=== PATIENT | male | born 1965 | race African-American/Black ===

== ENCOUNTER 2021-08-20 15:21 | Inpatient (IN) | payer OTHER ==
[2021-08-20 16:04] VITALS: BMI 30.5
[2021-08-20] MEDS ORDERED: MAGNESIUM CITRATE 300 ML BOTTLE PO PRN (16:53)
[2021-08-20] MEDS ORDERED: ACETAMINOPHEN 325 MG TABLET (FP) PO PRN (16:53)
[2021-08-20] MEDS ORDERED: MAG HYDROX/AL HYDROX/SIMETH 30 ML UNIT-DOSE CUP PO PRN (16:53)
[2021-08-20] MEDS ORDERED: P-EPHED 60MG/TRIPROLIDI 2.5MG TABLET PO PRN (16:53)
[2021-08-20] MEDS ORDERED: MAGNESIUM HYDROX 2400MG/30ML ORAL SUSPENSION 30 ML CUP PO PRN (16:53)
[2021-08-20] MEDS ORDERED: IBUPROFEN 400 MG TABLET (FP) PO PRN (16:53)
[2021-08-20] MEDS ORDERED: LOPERAMIDE HCL 2 MG CAPSULE PO PRN (16:53)
[2021-08-20] MEDS ORDERED: guaiFENesin 200 MG/10 ML 10 ML UNIT-DOSE CUPS PO PRN (16:53)
[2021-08-20] MEDS ORDERED: NICOTINE 10 MG CARTRIDGE (INHALER) IH PRN (16:53)
[2021-08-20] MEDS: hydrOXYzine PAMOATE 25 MG CAPSULE (FP) PO SCH ×2 (19:09→21:06)
[2021-08-20] MEDS: THIAMINE HCL 100 MG TABLET (FP) PO SCH (21:06)
[2021-08-20] MEDS: MELATONIN 5 MG TABLETS PO SCH (21:06)
[2021-08-21] MEDS: hydrOXYzine PAMOATE 25 MG CAPSULE (FP) PO SCH ×5 (06:04→21:02)
[2021-08-21] MEDS: PRENATAL VITAMINS W/ FOLIC ACID TABLET (FP) PO SCH (09:37)
[2021-08-21] MEDS: NICOTINE 7 MG/24 HOURS TOPICAL PATCH TD SCH (09:37)
[2021-08-21 11:03] LABS: HEMATOCRIT 37.9 % (35.4-49); HEMOGLOBIN 12.4 GM/dL (11.7-16.9); MCH 29.1 pg (25.7-33.7); MCHC 32.8 g/dl (32.0-35.9); MEAN CELL VOLUME 88.8 fl (80-96); MEAN PLT VOLUME 10.2 fl (7.5-11.1); PLATELET COUNT 197 10^3/uL (134-434); RBC 4.27 M/mm3 (4.00-5.60); RDW 14.1 % (11.9-15.9); WHITE BLOOD COUNT 6.2 K/mm3 (4.0-10.0)
[2021-08-21 11:05] LABS: PH,URINE 5.5 (5.0-8.0); URINE APPEARANCE CLEAR; URINE BILIRUBIN NEGATIVE (NEGATIVE); URINE COLOR YELLOW; URINE GLUCOSE (UA) NEGATIVE (NEGATIVE); URINE KETONE NEGATIVE (NEGATIVE); URINE LEUK ESTERASE NEGATIVE (NEGATIVE); URINE NITRITE NEGATIVE (NEGATIVE); URINE PROTEIN NEGATIVE (NEGATIVE); URINE UROBILINOGEN 0.2 mg/dL (0.2-1.0)
[2021-08-21 11:18] LABS: CALCIUM 8.5 mg/dL (8.5-10.1)
[2021-08-21 11:19] LABS: ALBUMIN 3.4 g/dl (3.4-5.0); BLOOD UREA NITROGEN 12.6 mg/dL (7-18)
[2021-08-21 11:23] LABS: BILIRUBIN,TOTAL 0.2 mg/dL (0.2-1); CREATININE 1.3 mg/dL (0.55-1.3); TOT PROT 6.4 g/dl (6.4-8.2)
[2021-08-21 11:35] LABS: SYPHILIS W/ RPR CONF NON-REACTIVE (NONREACTIVE)
[2021-08-21] MEDS ORDERED: buPROPion HCL 100 MG TABLET PO SCH (14:00)
[2021-08-21] MEDS ORDERED: FLUoxetine HCL 10 MG TABLET PO SCH (14:00)
[2021-08-21] MEDS: FLUoxetine HCL 20 MG CAPSULE PO SCH (14:29)
[2021-08-21] MEDS: LISINOPRIL 20 MG TABLET PO SCH (14:29)
[2021-08-21] MEDS: amLODIPine BESYLATE 5 MG TABLET (FP) PO SCH (14:29)
[2021-08-21] MEDS: TAMSULOSIN HCL 0.4 MG CAP PO SCH (14:29)
[2021-08-21] MEDS: ASPIRIN 81 MG CHEWABLE TABLETS PO SCH (14:29)
[2021-08-21] MEDS: ARIPiprazole 15 MG TABLET PO SCH (15:36)
[2021-08-21] MEDS: buPROPion HCL 100 MG TABLET PO SCH (17:20)
[2021-08-21] MEDS: MIRTAZAPINE 15 MG TABLET (FP) PO SCH (21:01)
[2021-08-21] MEDS: ATORVASTATIN CA 10 MG TABLET (FP) PO SCH (21:01)
[2021-08-21] MEDS: THIAMINE HCL 100 MG TABLET (FP) PO SCH (21:02)
[2021-08-21] MEDS: MELATONIN 5 MG TABLETS PO SCH (21:02)
[2021-08-22] MEDS: hydrOXYzine PAMOATE 25 MG CAPSULE (FP) PO SCH ×3 (06:32→14:34)
[2021-08-22] MEDS: TAMSULOSIN HCL 0.4 MG CAP PO SCH (08:54)
[2021-08-22] MEDS: PRENATAL VITAMINS W/ FOLIC ACID TABLET (FP) PO SCH (09:52)
[2021-08-22] MEDS: ASPIRIN 81 MG CHEWABLE TABLETS PO SCH (09:53)
[2021-08-22] MEDS: ARIPiprazole 15 MG TABLET PO SCH (09:53)
[2021-08-22] MEDS: NICOTINE 7 MG/24 HOURS TOPICAL PATCH TD SCH (09:53)
[2021-08-22] MEDS: buPROPion HCL 100 MG TABLET PO SCH ×2 (09:53→17:18)
[2021-08-22] MEDS: FLUoxetine HCL 20 MG CAPSULE PO SCH (09:53)
[2021-08-22] MEDS: amLODIPine BESYLATE 5 MG TABLET (FP) PO SCH (09:53)
[2021-08-22] MEDS: LISINOPRIL 20 MG TABLET PO SCH (09:53)
[2021-08-22] MEDS: THIAMINE HCL 100 MG TABLET (FP) PO SCH (21:07)
[2021-08-22] MEDS: MIRTAZAPINE 15 MG TABLET (FP) PO SCH (21:07)
[2021-08-22] MEDS: ATORVASTATIN CA 10 MG TABLET (FP) PO SCH (21:07)
[2021-08-22] MEDS: MELATONIN 5 MG TABLETS PO SCH (21:07)
[2021-08-23] MEDS: hydrOXYzine PAMOATE 25 MG CAPSULE (FP) PO PRN (06:10)
[2021-08-23] MEDS: PRENATAL VITAMINS W/ FOLIC ACID TABLET (FP) PO SCH (09:28)
[2021-08-23] MEDS: FLUoxetine HCL 20 MG CAPSULE PO SCH (09:29)
[2021-08-23] MEDS: ASPIRIN 81 MG CHEWABLE TABLETS PO SCH (09:29)
[2021-08-23] MEDS: ARIPiprazole 15 MG TABLET PO SCH (09:30)
[2021-08-23] MEDS: buPROPion HCL 100 MG TABLET PO SCH ×2 (09:30→16:34)
[2021-08-23] MEDS: NICOTINE 7 MG/24 HOURS TOPICAL PATCH TD SCH (09:30)
[2021-08-23] MEDS: TAMSULOSIN HCL 0.4 MG CAP PO SCH (09:30)
[2021-08-23] MEDS: amLODIPine BESYLATE 5 MG TABLET (FP) PO SCH (11:00)
[2021-08-23] MEDS: LISINOPRIL 20 MG TABLET PO SCH (11:00)
[2021-08-23] MEDS: ATORVASTATIN CA 10 MG TABLET (FP) PO SCH (21:00)
[2021-08-23] MEDS: THIAMINE HCL 100 MG TABLET (FP) PO SCH (21:00)
[2021-08-23] MEDS: MIRTAZAPINE 15 MG TABLET (FP) PO SCH (21:00)
[2021-08-23] MEDS: MELATONIN 5 MG TABLETS PO SCH (21:00)
[2021-08-24] MEDS: hydrOXYzine PAMOATE 25 MG CAPSULE (FP) PO PRN ×2 (06:16→16:46)
[2021-08-24] MEDS: TAMSULOSIN HCL 0.4 MG CAP PO SCH (09:41)
[2021-08-24] MEDS: amLODIPine BESYLATE 5 MG TABLET (FP) PO SCH (09:41)
[2021-08-24] MEDS: buPROPion HCL 100 MG TABLET PO SCH ×2 (09:42→16:45)
[2021-08-24] MEDS: ASPIRIN 81 MG CHEWABLE TABLETS PO SCH (09:42)
[2021-08-24] MEDS: NICOTINE 7 MG/24 HOURS TOPICAL PATCH TD SCH (09:42)
[2021-08-24] MEDS: LISINOPRIL 20 MG TABLET PO SCH (09:42)
[2021-08-24] MEDS: PRENATAL VITAMINS W/ FOLIC ACID TABLET (FP) PO SCH (09:42)
[2021-08-24] MEDS: ARIPiprazole 15 MG TABLET PO SCH (09:42)
[2021-08-24] MEDS: FLUoxetine HCL 20 MG CAPSULE PO SCH (09:42)
[2021-08-24] MEDS: MIRTAZAPINE 15 MG TABLET (FP) PO SCH (21:10)
[2021-08-24] MEDS: ATORVASTATIN CA 10 MG TABLET (FP) PO SCH (21:10)
[2021-08-24] MEDS: THIAMINE HCL 100 MG TABLET (FP) PO SCH (21:10)
[2021-08-24] MEDS: MELATONIN 5 MG TABLETS PO SCH (21:10)
[2021-08-25] MEDS: ASPIRIN 81 MG CHEWABLE TABLETS PO SCH (09:49)
[2021-08-25] MEDS: NICOTINE 7 MG/24 HOURS TOPICAL PATCH TD SCH (09:49)
[2021-08-25] MEDS: TAMSULOSIN HCL 0.4 MG CAP PO SCH (09:49)
[2021-08-25] MEDS: FLUoxetine HCL 20 MG CAPSULE PO SCH (09:49)
[2021-08-25] MEDS: ARIPiprazole 15 MG TABLET PO SCH (09:49)
[2021-08-25] MEDS: LISINOPRIL 20 MG TABLET PO SCH (09:49)
[2021-08-25] MEDS: PRENATAL VITAMINS W/ FOLIC ACID TABLET (FP) PO SCH (09:49)
[2021-08-25] MEDS: amLODIPine BESYLATE 5 MG TABLET (FP) PO SCH (09:49)
[2021-08-25] MEDS: buPROPion HCL 100 MG TABLET PO SCH ×2 (09:51→17:20)
[2021-08-25] MEDS: MELATONIN 5 MG TABLETS PO SCH (21:10)
[2021-08-25] MEDS: THIAMINE HCL 100 MG TABLET (FP) PO SCH (21:10)
[2021-08-25] MEDS: ATORVASTATIN CA 10 MG TABLET (FP) PO SCH (21:10)
[2021-08-25] MEDS: MIRTAZAPINE 15 MG TABLET (FP) PO SCH (21:10)
[2021-08-26] MEDS: buPROPion HCL 100 MG TABLET PO SCH ×2 (09:43→16:51)
[2021-08-26] MEDS: LISINOPRIL 20 MG TABLET PO SCH (09:44)
[2021-08-26] MEDS: ARIPiprazole 15 MG TABLET PO SCH (09:44)
[2021-08-26] MEDS: amLODIPine BESYLATE 5 MG TABLET (FP) PO SCH (09:44)
[2021-08-26] MEDS: NICOTINE 7 MG/24 HOURS TOPICAL PATCH TD SCH (09:44)
[2021-08-26] MEDS: ASPIRIN 81 MG CHEWABLE TABLETS PO SCH (09:44)
[2021-08-26] MEDS: TAMSULOSIN HCL 0.4 MG CAP PO SCH (09:44)
[2021-08-26] MEDS: FLUoxetine HCL 20 MG CAPSULE PO SCH (09:44)
[2021-08-26] MEDS: hydrOXYzine PAMOATE 25 MG CAPSULE (FP) PO PRN (09:45)
[2021-08-26] MEDS: PRENATAL VITAMINS W/ FOLIC ACID TABLET (FP) PO SCH (09:46)
[2021-08-26] MEDS: THIAMINE HCL 100 MG TABLET (FP) PO SCH (21:04)
[2021-08-26] MEDS: ATORVASTATIN CA 10 MG TABLET (FP) PO SCH (21:04)
[2021-08-26] MEDS: MELATONIN 5 MG TABLETS PO SCH (21:04)
[2021-08-26] MEDS: MIRTAZAPINE 15 MG TABLET (FP) PO SCH (21:04)
[2021-08-27] MEDS: hydrOXYzine PAMOATE 25 MG CAPSULE (FP) PO PRN ×3 (03:09→21:02)
[2021-08-27] MEDS: ARIPiprazole 15 MG TABLET PO SCH (09:36)
[2021-08-27] MEDS: FLUoxetine HCL 20 MG CAPSULE PO SCH (09:36)
[2021-08-27] MEDS: ASPIRIN 81 MG CHEWABLE TABLETS PO SCH (09:36)
[2021-08-27] MEDS: LISINOPRIL 20 MG TABLET PO SCH (09:36)
[2021-08-27] MEDS: TAMSULOSIN HCL 0.4 MG CAP PO SCH (09:36)
[2021-08-27] MEDS: amLODIPine BESYLATE 5 MG TABLET (FP) PO SCH (09:36)
[2021-08-27] MEDS: PRENATAL VITAMINS W/ FOLIC ACID TABLET (FP) PO SCH (09:36)
[2021-08-27] MEDS: buPROPion HCL 100 MG TABLET PO SCH ×2 (09:37→17:50)
[2021-08-27] MEDS: NICOTINE 7 MG/24 HOURS TOPICAL PATCH TD SCH (09:37)
[2021-08-27] MEDS: ATORVASTATIN CA 10 MG TABLET (FP) PO SCH (21:02)
[2021-08-27] MEDS: THIAMINE HCL 100 MG TABLET (FP) PO SCH (21:02)
[2021-08-27] MEDS: MIRTAZAPINE 15 MG TABLET (FP) PO SCH (21:02)
[2021-08-27] MEDS: MELATONIN 5 MG TABLETS PO SCH (21:03)
[2021-08-28] MEDS: ASPIRIN 81 MG CHEWABLE TABLETS PO SCH (09:36)
[2021-08-28] MEDS: FLUoxetine HCL 20 MG CAPSULE PO SCH (09:36)
[2021-08-28] MEDS: PRENATAL VITAMINS W/ FOLIC ACID TABLET (FP) PO SCH (09:36)
[2021-08-28] MEDS: buPROPion HCL 100 MG TABLET PO SCH ×2 (09:36→16:38)
[2021-08-28] MEDS: amLODIPine BESYLATE 5 MG TABLET (FP) PO SCH (09:37)
[2021-08-28] MEDS: ARIPiprazole 15 MG TABLET PO SCH (09:37)
[2021-08-28] MEDS: NICOTINE 7 MG/24 HOURS TOPICAL PATCH TD SCH (09:37)
[2021-08-28] MEDS: TAMSULOSIN HCL 0.4 MG CAP PO SCH (09:38)
[2021-08-28] MEDS: LISINOPRIL 20 MG TABLET PO SCH (09:40)
[2021-08-28] MEDS: THIAMINE HCL 100 MG TABLET (FP) PO SCH (21:03)
[2021-08-28] MEDS: MELATONIN 5 MG TABLETS PO SCH (21:03)
[2021-08-28] MEDS: ATORVASTATIN CA 10 MG TABLET (FP) PO SCH (21:03)
[2021-08-28] MEDS: MIRTAZAPINE 15 MG TABLET (FP) PO SCH (21:03)
[2021-08-29] MEDS: FLUoxetine HCL 20 MG CAPSULE PO SCH (09:50)
[2021-08-29] MEDS: PRENATAL VITAMINS W/ FOLIC ACID TABLET (FP) PO SCH (09:50)
[2021-08-29] MEDS: TAMSULOSIN HCL 0.4 MG CAP PO SCH (09:51)
[2021-08-29] MEDS: ASPIRIN 81 MG CHEWABLE TABLETS PO SCH (09:51)
[2021-08-29] MEDS: ARIPiprazole 15 MG TABLET PO SCH (09:51)
[2021-08-29] MEDS: amLODIPine BESYLATE 5 MG TABLET (FP) PO SCH (09:51)
[2021-08-29] MEDS: buPROPion HCL 100 MG TABLET PO SCH ×2 (09:51→16:37)
[2021-08-29] MEDS: LISINOPRIL 20 MG TABLET PO SCH (09:52)
[2021-08-29] MEDS: NICOTINE 7 MG/24 HOURS TOPICAL PATCH TD SCH (09:52)
[2021-08-29] MEDS: THIAMINE HCL 100 MG TABLET (FP) PO SCH (21:05)
[2021-08-29] MEDS: ATORVASTATIN CA 10 MG TABLET (FP) PO SCH (21:05)
[2021-08-29] MEDS: MIRTAZAPINE 15 MG TABLET (FP) PO SCH (21:05)
[2021-08-29] MEDS: MELATONIN 5 MG TABLETS PO SCH (21:05)
[2021-08-30] MEDS: amLODIPine BESYLATE 5 MG TABLET (FP) PO SCH (09:34)
[2021-08-30] MEDS: ASPIRIN 81 MG CHEWABLE TABLETS PO SCH (09:34)
[2021-08-30] MEDS: ARIPiprazole 15 MG TABLET PO SCH (09:34)
[2021-08-30] MEDS: FLUoxetine HCL 20 MG CAPSULE PO SCH (09:34)
[2021-08-30] MEDS: TAMSULOSIN HCL 0.4 MG CAP PO SCH (09:34)
[2021-08-30] MEDS: buPROPion HCL 100 MG TABLET PO SCH ×2 (09:35→16:57)
[2021-08-30] MEDS: LISINOPRIL 20 MG TABLET PO SCH (09:36)
[2021-08-30] MEDS: NICOTINE 7 MG/24 HOURS TOPICAL PATCH TD SCH (09:36)
[2021-08-30] MEDS: PRENATAL VITAMINS W/ FOLIC ACID TABLET (FP) PO SCH (09:36)
[2021-08-30] MEDS: THIAMINE HCL 100 MG TABLET (FP) PO SCH (21:09)
[2021-08-30] MEDS: ATORVASTATIN CA 10 MG TABLET (FP) PO SCH (21:09)
[2021-08-30] MEDS: MIRTAZAPINE 15 MG TABLET (FP) PO SCH (21:09)
[2021-08-30] MEDS: MELATONIN 5 MG TABLETS PO SCH (21:09)
[2021-08-30 21:51] VITALS: RESP 18
[2021-08-31] MEDS: amLODIPine BESYLATE 5 MG TABLET (FP) PO SCH (09:49)
[2021-08-31] MEDS: TAMSULOSIN HCL 0.4 MG CAP PO SCH (09:49)
[2021-08-31] MEDS: buPROPion HCL 100 MG TABLET PO SCH ×2 (09:50→17:00)
[2021-08-31] MEDS: NICOTINE 7 MG/24 HOURS TOPICAL PATCH TD SCH (09:50)
[2021-08-31] MEDS: ASPIRIN 81 MG CHEWABLE TABLETS PO SCH (09:50)
[2021-08-31] MEDS: FLUoxetine HCL 20 MG CAPSULE PO SCH (09:50)
[2021-08-31] MEDS: ARIPiprazole 15 MG TABLET PO SCH (09:50)
[2021-08-31] MEDS: PRENATAL VITAMINS W/ FOLIC ACID TABLET (FP) PO SCH (09:50)
[2021-08-31] MEDS: LISINOPRIL 20 MG TABLET PO SCH (09:50)
[2021-08-31] MEDS: ATORVASTATIN CA 10 MG TABLET (FP) PO SCH (21:02)
[2021-08-31] MEDS: THIAMINE HCL 100 MG TABLET (FP) PO SCH (21:02)
[2021-08-31] MEDS: MIRTAZAPINE 15 MG TABLET (FP) PO SCH (21:02)
[2021-08-31] MEDS: MELATONIN 5 MG TABLETS PO SCH (21:02)
[2021-09-01] MEDS: TAMSULOSIN HCL 0.4 MG CAP PO SCH (07:48)
[2021-09-01] MEDS: PRENATAL VITAMINS W/ FOLIC ACID TABLET (FP) PO SCH (09:37)
[2021-09-01] MEDS: ASPIRIN 81 MG CHEWABLE TABLETS PO SCH (09:38)
[2021-09-01] MEDS: buPROPion HCL 100 MG TABLET PO SCH ×2 (09:38→16:52)
[2021-09-01] MEDS: LISINOPRIL 20 MG TABLET PO SCH (09:38)
[2021-09-01] MEDS: amLODIPine BESYLATE 5 MG TABLET (FP) PO SCH (09:38)
[2021-09-01] MEDS: FLUoxetine HCL 20 MG CAPSULE PO SCH (09:38)
[2021-09-01] MEDS: ARIPiprazole 15 MG TABLET PO SCH (09:39)
[2021-09-01] MEDS: NICOTINE 7 MG/24 HOURS TOPICAL PATCH TD SCH (09:40)
[2021-09-01] MEDS: MELATONIN 5 MG TABLETS PO SCH (21:15)
[2021-09-01] MEDS: THIAMINE HCL 100 MG TABLET (FP) PO SCH (21:16)
[2021-09-01] MEDS: MIRTAZAPINE 15 MG TABLET (FP) PO SCH (21:16)
[2021-09-01] MEDS: ATORVASTATIN CA 10 MG TABLET (FP) PO SCH (21:16)
[2021-09-02] MEDS: TAMSULOSIN HCL 0.4 MG CAP PO SCH (08:05)
[2021-09-02] MEDS: ASPIRIN 81 MG CHEWABLE TABLETS PO SCH (09:35)
[2021-09-02] MEDS: hydrOXYzine PAMOATE 25 MG CAPSULE (FP) PO PRN (09:35)
[2021-09-02] MEDS: PRENATAL VITAMINS W/ FOLIC ACID TABLET (FP) PO SCH (09:35)
[2021-09-02] MEDS: FLUoxetine HCL 20 MG CAPSULE PO SCH (09:35)
[2021-09-02] MEDS: ARIPiprazole 15 MG TABLET PO SCH (09:35)
[2021-09-02] MEDS: amLODIPine BESYLATE 5 MG TABLET (FP) PO SCH (09:35)
[2021-09-02] MEDS: buPROPion HCL 100 MG TABLET PO SCH ×2 (09:36→17:20)
[2021-09-02] MEDS: NICOTINE 7 MG/24 HOURS TOPICAL PATCH TD SCH (09:36)
[2021-09-02] MEDS: LISINOPRIL 20 MG TABLET PO SCH (10:53)
[2021-09-02] MEDS: MELATONIN 5 MG TABLETS PO SCH (21:09)
[2021-09-02] MEDS: ATORVASTATIN CA 10 MG TABLET (FP) PO SCH (21:09)
[2021-09-02] MEDS: THIAMINE HCL 100 MG TABLET (FP) PO SCH (21:09)
[2021-09-02] MEDS: MIRTAZAPINE 15 MG TABLET (FP) PO SCH (21:09)
[2021-09-03 07:03] VITALS: TEMP 97.8
[2021-09-03] MEDS: TAMSULOSIN HCL 0.4 MG CAP PO SCH (09:34)
[2021-09-03] MEDS: PRENATAL VITAMINS W/ FOLIC ACID TABLET (FP) PO SCH (09:34)
[2021-09-03] MEDS: FLUoxetine HCL 20 MG CAPSULE PO SCH (09:34)
[2021-09-03] MEDS: amLODIPine BESYLATE 5 MG TABLET (FP) PO SCH (09:34)
[2021-09-03] MEDS: LISINOPRIL 20 MG TABLET PO SCH (09:34)
[2021-09-03] MEDS: ASPIRIN 81 MG CHEWABLE TABLETS PO SCH (09:34)
[2021-09-03] MEDS: ARIPiprazole 15 MG TABLET PO SCH (09:35)
[2021-09-03] MEDS: buPROPion HCL 100 MG TABLET PO SCH (09:35)
[2021-09-03] MEDS: NICOTINE 7 MG/24 HOURS TOPICAL PATCH TD SCH (09:36)
[2021-09-03 09:52] VITALS: BP 121/68; PULSE 77
== END 2021-09-03 09:45 | disposition home or self-care (01) | DRG 772 ==
LOC: YASAS 15:21 → Y5N 17:06
PROVIDERS: ADMIT Allergy & Immunology; ATTEND Psychiatry & Neurology Pain Medicine
PROC: HZ42ZZZ Group Counseling for Substance Abuse Treatment, Cognitive-Behavioral (ICD-10-PCS; principal; 2021-08-20)
DX: F10.20 Alcohol dependence, uncomplicated (principal); F14.20 Cocaine dependence, uncomplicated; F12.20 Cannabis dependence, uncomplicated; F17.210 Nicotine dependence, cigarettes, uncomplicated; F19.282 Other psychoactive substance dependence with psychoactive substance-induced sleep disorder; F19.24 Other psychoactive substance dependence with psychoactive substance-induced mood disorder; F43.10 Post-traumatic stress disorder, unspecified; I10 Essential (primary) hypertension; E78.5 Hyperlipidemia, unspecified; B40.0 Acute pulmonary blastomycosis; E66.9 Obesity, unspecified; Z68.30 Body mass index [BMI] 30.0-30.9, adult; Z99.89 Dependence on other enabling machines and devices
CPT/HCPCS: 36415; 80053; 81003; 82962; 85027; 86780; 86803

== ENCOUNTER 2021-10-17 16:55 | Inpatient (IN) | payer OTHER ==
[2021-10-17] MEDS ORDERED: MAG HYDROX/AL HYDROX/SIMETH 30 ML UNIT-DOSE CUP PO PRN (21:55)
[2021-10-17] MEDS ORDERED: guaiFENesin 200 MG/10 ML 10 ML UNIT-DOSE CUPS PO PRN (21:55)
[2021-10-17] MEDS ORDERED: NICOTINE POLACRILEX 2 MG GUM BC PRN (21:55)
[2021-10-17] MEDS ORDERED: MAGNESIUM HYDROX 2400MG/30ML ORAL SUSPENSION 30 ML CUP PO PRN (21:55)
[2021-10-17] MEDS ORDERED: P-EPHED 60MG/TRIPROLIDI 2.5MG TABLET PO PRN (21:55)
[2021-10-17] MEDS ORDERED: ACETAMINOPHEN 325 MG TABLET (FP) PO PRN (21:55)
[2021-10-17] MEDS ORDERED: LOPERAMIDE HCL 2 MG CAPSULE PO PRN (21:55)
[2021-10-17] MEDS ORDERED: MAGNESIUM CITRATE 300 ML BOTTLE PO PRN (21:55)
[2021-10-17 22:35] VITALS: BMI 30.4
[2021-10-18] MEDS: hydrOXYzine PAMOATE 25 MG CAPSULE (FP) PO SCH ×6 (01:32→21:18)
[2021-10-18] MEDS: MELATONIN 5 MG TABLETS PO SCH ×2 (01:32→21:17)
[2021-10-18] MEDS: THIAMINE HCL 100 MG TABLET (FP) PO SCH ×2 (01:33→21:17)
[2021-10-18] MEDS: PRENATAL VITAMINS W/ FOLIC ACID TABLET (FP) PO SCH (09:22)
[2021-10-18] MEDS ORDERED: buPROPion HCL 100 MG TABLET PO ONE (09:45)
[2021-10-18] MEDS: amLODIPine BESYLATE 5 MG TABLET (FP) PO SCH (10:13)
[2021-10-18] MEDS: FLUoxetine HCL 20 MG CAPSULE PO SCH (10:13)
[2021-10-18] MEDS: ARIPiprazole 15 MG TABLET PO SCH (10:13)
[2021-10-18] MEDS: TAMSULOSIN HCL 0.4 MG CAP PO SCH (10:13)
[2021-10-18] MEDS: ASPIRIN 81 MG CHEWABLE TABLETS PO SCH (10:13)
[2021-10-18 10:16] LABS: HEMOGLOBIN 13.1 GM/dL (11.7-16.9); MCHC 32.8 g/dl (32.0-35.9); MEAN CELL VOLUME 88.5 fl (80-96); MEAN PLT VOLUME 10.1 fl (7.5-11.1); PLATELET COUNT 236 10^3/uL (134-434); RBC 4.52 M/mm3 (4.00-5.60); RDW 14.2 % (11.9-15.9); WHITE BLOOD COUNT 6.6 K/mm3 (4.0-10.0)
[2021-10-18 10:19] LABS: ALBUMIN 3.4 g/dl (3.4-5.0); BLOOD UREA NITROGEN 18.4 mg/dL (7-18); CALCIUM 9.2 mg/dL (8.5-10.1)
[2021-10-18 10:21] LABS: CREATININE 1.4 mg/dL (0.55-1.3)
[2021-10-18 10:23] LABS: BILIRUBIN,TOTAL 0.2 mg/dL (0.2-1); TOT PROT 6.7 g/dl (6.4-8.2)
[2021-10-18] MEDS: IBUPROFEN 400 MG TABLET (FP) PO PRN (10:26)
[2021-10-18 10:39] LABS: SYPHILIS W/ RPR CONF NON-REACTIVE (NONREACTIVE)
[2021-10-18 12:54] LABS: PH,URINE 5.5 (5.0-8.0); URINE APPEARANCE CLEAR; URINE BILIRUBIN NEGATIVE (NEGATIVE); URINE COLOR YELLOW; URINE GLUCOSE (UA) NEGATIVE (NEGATIVE); URINE KETONE NEGATIVE (NEGATIVE); URINE LEUK ESTERASE NEGATIVE (NEGATIVE); URINE NITRITE NEGATIVE (NEGATIVE); URINE PROTEIN NEGATIVE (NEGATIVE); URINE UROBILINOGEN 0.2 mg/dL (0.2-1.0)
[2021-10-18] MEDS ORDERED: buPROPion HCL 100 MG TABLET PO SCH (16:00)
[2021-10-18] MEDS: MIRTAZAPINE 15 MG TABLET (FP) PO SCH (21:17)
[2021-10-18] MEDS: ATORVASTATIN CA 10 MG TABLET (FP) PO SCH (21:17)
[2021-10-19] MEDS: hydrOXYzine PAMOATE 25 MG CAPSULE (FP) PO SCH ×5 (06:58→21:02)
[2021-10-19] MEDS: TAMSULOSIN HCL 0.4 MG CAP PO SCH (09:44)
[2021-10-19] MEDS: FLUoxetine HCL 20 MG CAPSULE PO SCH (09:44)
[2021-10-19] MEDS: ASPIRIN 81 MG CHEWABLE TABLETS PO SCH (09:44)
[2021-10-19] MEDS: ARIPiprazole 15 MG TABLET PO SCH (09:45)
[2021-10-19] MEDS: PRENATAL VITAMINS W/ FOLIC ACID TABLET (FP) PO SCH (09:45)
[2021-10-19] MEDS: amLODIPine BESYLATE 5 MG TABLET (FP) PO SCH (09:46)
[2021-10-19] MEDS: buPROPion HCL 100 MG TABLET PO SCH ×2 (11:15→17:03)
[2021-10-19] MEDS: ATORVASTATIN CA 10 MG TABLET (FP) PO SCH (21:01)
[2021-10-19] MEDS: THIAMINE HCL 100 MG TABLET (FP) PO SCH (21:01)
[2021-10-19] MEDS: MIRTAZAPINE 15 MG TABLET (FP) PO SCH (21:02)
[2021-10-19] MEDS: MELATONIN 5 MG TABLETS PO SCH (21:02)
[2021-10-20] MEDS: hydrOXYzine PAMOATE 25 MG CAPSULE (FP) PO SCH ×5 (06:38→21:32)
[2021-10-20] MEDS: TAMSULOSIN HCL 0.4 MG CAP PO SCH (09:50)
[2021-10-20] MEDS: ASPIRIN 81 MG CHEWABLE TABLETS PO SCH (09:50)
[2021-10-20] MEDS: PRENATAL VITAMINS W/ FOLIC ACID TABLET (FP) PO SCH (09:50)
[2021-10-20] MEDS: buPROPion HCL 100 MG TABLET PO SCH ×2 (09:51→21:31)
[2021-10-20] MEDS: amLODIPine BESYLATE 5 MG TABLET (FP) PO SCH (09:51)
[2021-10-20] MEDS: ARIPiprazole 15 MG TABLET PO SCH (09:51)
[2021-10-20] MEDS: FLUoxetine HCL 20 MG CAPSULE PO SCH (09:51)
[2021-10-20] MEDS: IBUPROFEN 400 MG TABLET (FP) PO PRN (17:02)
[2021-10-20] MEDS: ATORVASTATIN CA 10 MG TABLET (FP) PO SCH (21:32)
[2021-10-20] MEDS: MELATONIN 5 MG TABLETS PO SCH (21:32)
[2021-10-20] MEDS: MIRTAZAPINE 15 MG TABLET (FP) PO SCH (21:32)
[2021-10-20] MEDS: THIAMINE HCL 100 MG TABLET (FP) PO SCH (21:32)
[2021-10-21] MEDS: hydrOXYzine PAMOATE 25 MG CAPSULE (FP) PO SCH ×5 (07:52→21:09)
[2021-10-21] MEDS: buPROPion HCL 100 MG TABLET PO SCH ×2 (09:42→17:46)
[2021-10-21] MEDS: FLUoxetine HCL 20 MG CAPSULE PO SCH (09:42)
[2021-10-21] MEDS: PRENATAL VITAMINS W/ FOLIC ACID TABLET (FP) PO SCH (09:42)
[2021-10-21] MEDS: amLODIPine BESYLATE 5 MG TABLET (FP) PO SCH (09:42)
[2021-10-21] MEDS: ASPIRIN 81 MG CHEWABLE TABLETS PO SCH (09:42)
[2021-10-21] MEDS: ARIPiprazole 15 MG TABLET PO SCH (09:42)
[2021-10-21] MEDS: TAMSULOSIN HCL 0.4 MG CAP PO SCH (10:19)
[2021-10-21] MEDS: THIAMINE HCL 100 MG TABLET (FP) PO SCH (21:09)
[2021-10-21] MEDS: ATORVASTATIN CA 10 MG TABLET (FP) PO SCH (21:09)
[2021-10-21] MEDS: MELATONIN 5 MG TABLETS PO SCH (21:09)
[2021-10-21] MEDS: MIRTAZAPINE 15 MG TABLET (FP) PO SCH (21:09)
[2021-10-22] MEDS: hydrOXYzine PAMOATE 25 MG CAPSULE (FP) PO SCH ×5 (06:40→21:04)
[2021-10-22] MEDS: IBUPROFEN 400 MG TABLET (FP) PO PRN (07:37)
[2021-10-22] MEDS: ASPIRIN 81 MG CHEWABLE TABLETS PO SCH (09:50)
[2021-10-22] MEDS: TAMSULOSIN HCL 0.4 MG CAP PO SCH (09:50)
[2021-10-22] MEDS: ARIPiprazole 15 MG TABLET PO SCH (09:51)
[2021-10-22] MEDS: buPROPion HCL 100 MG TABLET PO SCH ×2 (09:51→16:51)
[2021-10-22] MEDS: PRENATAL VITAMINS W/ FOLIC ACID TABLET (FP) PO SCH (09:51)
[2021-10-22] MEDS: FLUoxetine HCL 20 MG CAPSULE PO SCH (09:51)
[2021-10-22] MEDS: amLODIPine BESYLATE 5 MG TABLET (FP) PO SCH (09:51)
[2021-10-22] MEDS: THIAMINE HCL 100 MG TABLET (FP) PO SCH (21:04)
[2021-10-22] MEDS: MIRTAZAPINE 15 MG TABLET (FP) PO SCH (21:04)
[2021-10-22] MEDS: ATORVASTATIN CA 10 MG TABLET (FP) PO SCH (21:04)
[2021-10-22] MEDS: MELATONIN 5 MG TABLETS PO SCH (21:04)
[2021-10-23] MEDS: hydrOXYzine PAMOATE 25 MG CAPSULE (FP) PO SCH ×5 (06:15→21:10)
[2021-10-23] MEDS: TAMSULOSIN HCL 0.4 MG CAP PO SCH (10:06)
[2021-10-23] MEDS: ASPIRIN 81 MG CHEWABLE TABLETS PO SCH (10:06)
[2021-10-23] MEDS: ARIPiprazole 15 MG TABLET PO SCH (10:07)
[2021-10-23] MEDS: buPROPion HCL 100 MG TABLET PO SCH ×2 (10:07→16:59)
[2021-10-23] MEDS: FLUoxetine HCL 20 MG CAPSULE PO SCH (10:07)
[2021-10-23] MEDS: PRENATAL VITAMINS W/ FOLIC ACID TABLET (FP) PO SCH (10:08)
[2021-10-23] MEDS: amLODIPine BESYLATE 5 MG TABLET (FP) PO SCH (10:08)
[2021-10-23] MEDS: THIAMINE HCL 100 MG TABLET (FP) PO SCH (21:10)
[2021-10-23] MEDS: ATORVASTATIN CA 10 MG TABLET (FP) PO SCH (21:10)
[2021-10-23] MEDS: MELATONIN 5 MG TABLETS PO SCH (21:10)
[2021-10-23] MEDS: MIRTAZAPINE 15 MG TABLET (FP) PO SCH (21:11)
[2021-10-24] MEDS: hydrOXYzine PAMOATE 25 MG CAPSULE (FP) PO SCH ×5 (06:14→21:12)
[2021-10-24] MEDS: amLODIPine BESYLATE 5 MG TABLET (FP) PO SCH (09:52)
[2021-10-24] MEDS: ASPIRIN 81 MG CHEWABLE TABLETS PO SCH (09:52)
[2021-10-24] MEDS: TAMSULOSIN HCL 0.4 MG CAP PO SCH (09:53)
[2021-10-24] MEDS: FLUoxetine HCL 20 MG CAPSULE PO SCH (09:53)
[2021-10-24] MEDS: PRENATAL VITAMINS W/ FOLIC ACID TABLET (FP) PO SCH (09:53)
[2021-10-24] MEDS: ARIPiprazole 15 MG TABLET PO SCH (09:54)
[2021-10-24] MEDS: buPROPion HCL 100 MG TABLET PO SCH ×2 (09:54→17:47)
[2021-10-24] MEDS: MELATONIN 5 MG TABLETS PO SCH (21:11)
[2021-10-24] MEDS: ATORVASTATIN CA 10 MG TABLET (FP) PO SCH (21:12)
[2021-10-24] MEDS: THIAMINE HCL 100 MG TABLET (FP) PO SCH (21:12)
[2021-10-24] MEDS: MIRTAZAPINE 15 MG TABLET (FP) PO SCH (21:12)
[2021-10-25] MEDS: hydrOXYzine PAMOATE 25 MG CAPSULE (FP) PO SCH ×5 (06:11→21:18)
[2021-10-25] MEDS: FLUoxetine HCL 20 MG CAPSULE PO SCH (09:58)
[2021-10-25] MEDS: ASPIRIN 81 MG CHEWABLE TABLETS PO SCH (09:58)
[2021-10-25] MEDS: TAMSULOSIN HCL 0.4 MG CAP PO SCH (09:58)
[2021-10-25] MEDS: amLODIPine BESYLATE 5 MG TABLET (FP) PO SCH (09:58)
[2021-10-25] MEDS: ARIPiprazole 15 MG TABLET PO SCH (09:58)
[2021-10-25] MEDS: PRENATAL VITAMINS W/ FOLIC ACID TABLET (FP) PO SCH (09:58)
[2021-10-25] MEDS: buPROPion HCL 100 MG TABLET PO SCH ×2 (10:37→18:59)
[2021-10-25] MEDS: MELATONIN 5 MG TABLETS PO SCH (21:19)
[2021-10-25] MEDS: THIAMINE HCL 100 MG TABLET (FP) PO SCH (21:19)
[2021-10-25] MEDS: MIRTAZAPINE 15 MG TABLET (FP) PO SCH (21:20)
[2021-10-25] MEDS: ATORVASTATIN CA 10 MG TABLET (FP) PO SCH (21:20)
[2021-10-26] MEDS: hydrOXYzine PAMOATE 25 MG CAPSULE (FP) PO SCH ×5 (06:27→21:01)
[2021-10-26] MEDS: PRENATAL VITAMINS W/ FOLIC ACID TABLET (FP) PO SCH (09:43)
[2021-10-26] MEDS: FLUoxetine HCL 20 MG CAPSULE PO SCH (09:43)
[2021-10-26] MEDS: amLODIPine BESYLATE 5 MG TABLET (FP) PO SCH (09:43)
[2021-10-26] MEDS: buPROPion HCL 100 MG TABLET PO SCH ×2 (09:43→16:45)
[2021-10-26] MEDS: TAMSULOSIN HCL 0.4 MG CAP PO SCH (09:43)
[2021-10-26] MEDS: ASPIRIN 81 MG CHEWABLE TABLETS PO SCH (09:44)
[2021-10-26] MEDS: ARIPiprazole 15 MG TABLET PO SCH (09:44)
[2021-10-26] MEDS ORDERED: PNEUMOC 20-VAL CONJ-DIP CRM/PF 0.5 ML SYRINGE IM ONE (12:00)
[2021-10-26] MEDS: THIAMINE HCL 100 MG TABLET (FP) PO SCH (21:00)
[2021-10-26] MEDS: MELATONIN 5 MG TABLETS PO SCH (21:00)
[2021-10-26] MEDS: MIRTAZAPINE 15 MG TABLET (FP) PO SCH (21:01)
[2021-10-26] MEDS: ATORVASTATIN CA 10 MG TABLET (FP) PO SCH (21:01)
[2021-10-27] MEDS: hydrOXYzine PAMOATE 25 MG CAPSULE (FP) PO SCH ×5 (06:15→21:09)
[2021-10-27] MEDS: TAMSULOSIN HCL 0.4 MG CAP PO SCH (09:35)
[2021-10-27] MEDS: amLODIPine BESYLATE 5 MG TABLET (FP) PO SCH (09:35)
[2021-10-27] MEDS: ASPIRIN 81 MG CHEWABLE TABLETS PO SCH (09:35)
[2021-10-27] MEDS: FLUoxetine HCL 20 MG CAPSULE PO SCH (09:35)
[2021-10-27] MEDS: PRENATAL VITAMINS W/ FOLIC ACID TABLET (FP) PO SCH (09:36)
[2021-10-27] MEDS: ARIPiprazole 15 MG TABLET PO SCH (09:36)
[2021-10-27] MEDS: buPROPion HCL 100 MG TABLET PO SCH ×2 (09:37→16:45)
[2021-10-27] MEDS: MIRTAZAPINE 15 MG TABLET (FP) PO SCH (21:09)
[2021-10-27] MEDS: THIAMINE HCL 100 MG TABLET (FP) PO SCH (21:09)
[2021-10-27] MEDS: ATORVASTATIN CA 10 MG TABLET (FP) PO SCH (21:09)
[2021-10-27] MEDS: MELATONIN 5 MG TABLETS PO SCH (21:09)
[2021-10-28] MEDS: hydrOXYzine PAMOATE 25 MG CAPSULE (FP) PO SCH ×5 (06:11→21:13)
[2021-10-28] MEDS: ASPIRIN 81 MG CHEWABLE TABLETS PO SCH (09:53)
[2021-10-28] MEDS: TAMSULOSIN HCL 0.4 MG CAP PO SCH (09:53)
[2021-10-28] MEDS: PRENATAL VITAMINS W/ FOLIC ACID TABLET (FP) PO SCH (09:54)
[2021-10-28] MEDS: ARIPiprazole 15 MG TABLET PO SCH (09:54)
[2021-10-28] MEDS: FLUoxetine HCL 20 MG CAPSULE PO SCH (09:54)
[2021-10-28] MEDS: amLODIPine BESYLATE 5 MG TABLET (FP) PO SCH (09:54)
[2021-10-28] MEDS: CARBAMIDE PEROXIDE 6.5% OTIC 15 ML BOTTLE AU SCH ×2 (10:46→21:14)
[2021-10-28] MEDS: buPROPion HCL 100 MG TABLET PO SCH ×2 (10:46→17:47)
[2021-10-28] MEDS: MELATONIN 5 MG TABLETS PO SCH (21:13)
[2021-10-28] MEDS: MIRTAZAPINE 15 MG TABLET (FP) PO SCH (21:13)
[2021-10-28] MEDS: THIAMINE HCL 100 MG TABLET (FP) PO SCH (21:13)
[2021-10-28] MEDS: ATORVASTATIN CA 10 MG TABLET (FP) PO SCH (21:13)
[2021-10-29] MEDS: IBUPROFEN 400 MG TABLET (FP) PO PRN (01:01)
[2021-10-29] MEDS: hydrOXYzine PAMOATE 25 MG CAPSULE (FP) PO SCH ×5 (06:11→21:15)
[2021-10-29] MEDS: ARIPiprazole 15 MG TABLET PO SCH (09:49)
[2021-10-29] MEDS: TAMSULOSIN HCL 0.4 MG CAP PO SCH (09:50)
[2021-10-29] MEDS: amLODIPine BESYLATE 5 MG TABLET (FP) PO SCH (09:50)
[2021-10-29] MEDS: CARBAMIDE PEROXIDE 6.5% OTIC 15 ML BOTTLE AU SCH ×2 (09:50→21:16)
[2021-10-29] MEDS: PRENATAL VITAMINS W/ FOLIC ACID TABLET (FP) PO SCH (09:50)
[2021-10-29] MEDS: FLUoxetine HCL 20 MG CAPSULE PO SCH (09:50)
[2021-10-29] MEDS: ASPIRIN 81 MG CHEWABLE TABLETS PO SCH (09:50)
[2021-10-29] MEDS: buPROPion HCL 100 MG TABLET PO SCH ×2 (10:54→16:25)
[2021-10-29] MEDS: ATORVASTATIN CA 10 MG TABLET (FP) PO SCH (21:14)
[2021-10-29] MEDS: THIAMINE HCL 100 MG TABLET (FP) PO SCH (21:14)
[2021-10-29] MEDS: MIRTAZAPINE 15 MG TABLET (FP) PO SCH (21:14)
[2021-10-29] MEDS: MELATONIN 5 MG TABLETS PO SCH (21:15)
[2021-10-30] MEDS: hydrOXYzine PAMOATE 25 MG CAPSULE (FP) PO SCH (06:10)
[2021-10-30 06:47] VITALS: RESP 16
[2021-10-30] MEDS: ARIPiprazole 15 MG TABLET PO SCH (09:57)
[2021-10-30] MEDS: amLODIPine BESYLATE 5 MG TABLET (FP) PO SCH (09:58)
[2021-10-30] MEDS: CARBAMIDE PEROXIDE 6.5% OTIC 15 ML BOTTLE AU SCH ×2 (09:58→21:10)
[2021-10-30] MEDS: TAMSULOSIN HCL 0.4 MG CAP PO SCH (09:58)
[2021-10-30] MEDS: ASPIRIN 81 MG CHEWABLE TABLETS PO SCH (09:58)
[2021-10-30] MEDS: PRENATAL VITAMINS W/ FOLIC ACID TABLET (FP) PO SCH (09:59)
[2021-10-30] MEDS: FLUoxetine HCL 20 MG CAPSULE PO SCH (09:59)
[2021-10-30] MEDS: buPROPion HCL 100 MG TABLET PO SCH ×2 (10:00→17:21)
[2021-10-30] MEDS: MELATONIN 5 MG TABLETS PO SCH (21:08)
[2021-10-30] MEDS: THIAMINE HCL 100 MG TABLET (FP) PO SCH (21:08)
[2021-10-30] MEDS: MIRTAZAPINE 15 MG TABLET (FP) PO SCH (21:08)
[2021-10-30] MEDS: ATORVASTATIN CA 10 MG TABLET (FP) PO SCH (21:08)
[2021-10-30] MEDS: hydrOXYzine PAMOATE 25 MG CAPSULE (FP) PO PRN (21:09)
[2021-10-31] MEDS: hydrOXYzine PAMOATE 25 MG CAPSULE (FP) PO PRN (06:24)
[2021-10-31 06:43] VITALS: TEMP 98
[2021-10-31] MEDS: TAMSULOSIN HCL 0.4 MG CAP PO SCH (09:09)
[2021-10-31] MEDS: ASPIRIN 81 MG CHEWABLE TABLETS PO SCH (09:09)
[2021-10-31] MEDS: PRENATAL VITAMINS W/ FOLIC ACID TABLET (FP) PO SCH (09:09)
[2021-10-31] MEDS: amLODIPine BESYLATE 5 MG TABLET (FP) PO SCH (09:09)
[2021-10-31] MEDS: CARBAMIDE PEROXIDE 6.5% OTIC 15 ML BOTTLE AU SCH (09:09)
[2021-10-31] MEDS: ARIPiprazole 15 MG TABLET PO SCH (09:09)
[2021-10-31 09:10] VITALS: BP 112/73; PULSE 78
[2021-10-31] MEDS: buPROPion HCL 100 MG TABLET PO SCH (09:10)
[2021-10-31] MEDS: FLUoxetine HCL 20 MG CAPSULE PO SCH (09:10)
== END 2021-10-31 09:21 | disposition home or self-care (01) | DRG 772 ==
LOC: YASAS 16:55 → Y3E 23:56
PROVIDERS: ADMIT Allergy & Immunology; ATTEND Surgery
PROC: HZ42ZZZ Group Counseling for Substance Abuse Treatment, Cognitive-Behavioral (ICD-10-PCS; principal; 2021-10-17)
DX: F14.20 Cocaine dependence, uncomplicated (principal); F17.210 Nicotine dependence, cigarettes, uncomplicated; F19.282 Other psychoactive substance dependence with psychoactive substance-induced sleep disorder; F19.24 Other psychoactive substance dependence with psychoactive substance-induced mood disorder; F43.10 Post-traumatic stress disorder, unspecified; F32.A Depression, unspecified; I10 Essential (primary) hypertension; E78.5 Hyperlipidemia, unspecified; H61.23 Impacted cerumen, bilateral; M17.12 Unilateral primary osteoarthritis, left knee; N40.0 Benign prostatic hyperplasia without lower urinary tract symptoms
CPT/HCPCS: 36415; 80053; 81003; 82962; 85027; 86780; 86803; 87811; 90677; C9803-CS; U0003; U0005

== ENCOUNTER 2022-08-09 17:37 | Inpatient (IN) | payer OTHER ==
[2022-08-09 18:01] VITALS: BMI 32.1
[2022-08-09] MEDS ORDERED: NALOXONE HCL 0.4 MG/ML VIAL IM PRN (19:41)
[2022-08-09] MEDS ORDERED: COLLOIDAL OATMEAL 1 BAR EACH TP PRN (19:41)
[2022-08-09] MEDS ORDERED: BENZOCAINE/MENTHOL (CHLORASEPTIC ) LOZENGE MM PRN (19:41)
[2022-08-09] MEDS ORDERED: hydrOXYzine PAMOATE 25 MG CAPSULE (FP) PO PRN (19:41)
[2022-08-09] MEDS ORDERED: MAG HYDROX/AL HYDROX/SIMETH 30 ML UNIT-DOSE CUP PO PRN (19:41)
[2022-08-09] MEDS ORDERED: POLYETHYLENE GLYCOL (HEALTHYLAX) 3350 17 GM PACKET PO PRN (19:41)
[2022-08-09] MEDS ORDERED: IBUPROFEN 400 MG TABLET (FP) PO PRN (19:41)
[2022-08-09] MEDS ORDERED: ACETAMINOPHEN 325 MG TABLET (FP) PO PRN (19:41)
[2022-08-09] MEDS ORDERED: MAGNESIUM HYDROX 2400MG/30ML ORAL SUSPENSION 30 ML CUP PO PRN (19:41)
[2022-08-09] MEDS ORDERED: LOPERAMIDE HCL 2 MG CAPSULE PO PRN (19:41)
[2022-08-09] MEDS ORDERED: NALOXONE HCL (KLOXXADO) 8 MG SPRAY NS PRN (19:41)
[2022-08-09] MEDS ORDERED: guaiFENesin 600 MG TABLET.ER (FP) PO PRN (19:41)
[2022-08-09] MEDS ORDERED: AMMONIUM LACTATE 12% LOTION 225 GM BOTTLE TP PRN (19:41)
[2022-08-09] MEDS ORDERED: BENZONATATE 200 MG CAPSULE PO PRN (19:41)
[2022-08-09] MEDS: THIAMINE HCL 100 MG TABLET (FP) PO SCH (21:23)
[2022-08-09] MEDS: ATORVASTATIN CA 10 MG TABLET (FP) PO SCH (21:23)
[2022-08-09] MEDS ORDERED: MELATONIN 5 MG TABLETS PO SCH (22:00)
[2022-08-10] MEDS: ASPIRIN 81 MG CHEWABLE TABLETS PO SCH (09:12)
[2022-08-10] MEDS: TAMSULOSIN HCL 0.4 MG CAP PO SCH (09:12)
[2022-08-10] MEDS: PRENATAL VITAMINS W/ FOLIC ACID TABLET (FP) PO SCH (09:12)
[2022-08-10] MEDS: amLODIPine BESYLATE 5 MG TABLET (FP) PO SCH (09:36)
[2022-08-10] MEDS: LISINOPRIL 20 MG TABLET PO SCH (09:36)
[2022-08-10 11:53] LABS: HEMATOCRIT 37.2 % (35.4-49); HEMOGLOBIN 11.7 GM/dL (11.7-16.9); MCHC 31.4 g/dl (32.0-35.9); MEAN PLT VOLUME 10.3 fl (7.5-11.1); PLATELET COUNT 249 10^3/uL (134-434); RBC 4.32 M/mm3 (4.00-5.60); WHITE BLOOD COUNT 6.2 K/mm3 (4.0-10.0)
[2022-08-10 12:12] LABS: URINE APPEARANCE CLEAR; URINE BILIRUBIN NEGATIVE (NEGATIVE); URINE COLOR YELLOW; URINE GLUCOSE (UA) NEGATIVE (NEGATIVE); URINE KETONE NEGATIVE (NEGATIVE); URINE LEUK ESTERASE NEGATIVE (NEGATIVE); URINE NITRITE NEGATIVE (NEGATIVE); URINE PROTEIN NEGATIVE (NEGATIVE); URINE UROBILINOGEN 0.2 mg/dL (0.2-1.0)
[2022-08-10 12:15] LABS: POTASSIUM 4.3 mmol/L (3.5-5.1)
[2022-08-10 12:28] LABS: CALCIUM 9.3 mg/dL (8.5-10.1)
[2022-08-10 12:29] LABS: ALBUMIN 3.1 g/dl (3.4-5.0); BLOOD UREA NITROGEN 11.2 mg/dL (7-18); CREATININE 1.3 mg/dL (0.55-1.3)
[2022-08-10 12:30] LABS: BILIRUBIN,TOTAL 0.3 mg/dL (0.2-1); TOT PROT 6.7 g/dl (6.4-8.2)
[2022-08-10] MEDS: THIAMINE HCL 100 MG TABLET (FP) PO SCH (21:21)
[2022-08-10] MEDS: ATORVASTATIN CA 10 MG TABLET (FP) PO SCH (21:21)
[2022-08-10] MEDS: SUVOREXANT 10 MG TABLET PO PRN (21:22)
[2022-08-11] MEDS: PRENATAL VITAMINS W/ FOLIC ACID TABLET (FP) PO SCH (09:51)
[2022-08-11] MEDS: TAMSULOSIN HCL 0.4 MG CAP PO SCH (09:51)
[2022-08-11] MEDS: LISINOPRIL 20 MG TABLET PO SCH ×2 (09:52→11:34)
[2022-08-11] MEDS: FLUoxetine HCL 20 MG CAPSULE PO SCH (09:52)
[2022-08-11] MEDS: amLODIPine BESYLATE 5 MG TABLET (FP) PO SCH (09:52)
[2022-08-11] MEDS: ASPIRIN 81 MG CHEWABLE TABLETS PO SCH (09:52)
[2022-08-11] MEDS: LIDOCAINE 5% TOPICAL PATCH TP SCH (12:31)
[2022-08-11] MEDS: METHYL SALICYLATE/MENTHOL OINT 30 GM TUBE TP SCH (12:32)
[2022-08-11] MEDS: THIAMINE HCL 100 MG TABLET (FP) PO SCH (21:16)
[2022-08-11] MEDS: ATORVASTATIN CA 10 MG TABLET (FP) PO SCH (21:16)
[2022-08-11] MEDS: LIDOCAINE PATCH REMOVAL MC SCH (21:17)
[2022-08-11] MEDS: SUVOREXANT 10 MG TABLET PO PRN (21:17)
[2022-08-12] MEDS: TAMSULOSIN HCL 0.4 MG CAP PO SCH (07:39)
[2022-08-12] MEDS: ASPIRIN 81 MG CHEWABLE TABLETS PO SCH (10:00)
[2022-08-12] MEDS: METHYL SALICYLATE/MENTHOL OINT 30 GM TUBE TP SCH (10:00)
[2022-08-12] MEDS: FLUoxetine HCL 20 MG CAPSULE PO SCH (10:00)
[2022-08-12] MEDS: LIDOCAINE 5% TOPICAL PATCH TP SCH (10:00)
[2022-08-12] MEDS: amLODIPine BESYLATE 5 MG TABLET (FP) PO SCH (10:00)
[2022-08-12] MEDS: PRENATAL VITAMINS W/ FOLIC ACID TABLET (FP) PO SCH (10:01)
[2022-08-12] MEDS: THIAMINE HCL 100 MG TABLET (FP) PO SCH (21:29)
[2022-08-12] MEDS: SUVOREXANT 10 MG TABLET PO PRN (21:29)
[2022-08-12] MEDS: ATORVASTATIN CA 10 MG TABLET (FP) PO SCH (21:29)
[2022-08-12] MEDS: LIDOCAINE PATCH REMOVAL MC SCH (21:30)
[2022-08-13] MEDS: TAMSULOSIN HCL 0.4 MG CAP PO SCH (07:34)
[2022-08-13] MEDS: ASPIRIN 81 MG CHEWABLE TABLETS PO SCH (09:59)
[2022-08-13] MEDS: PRENATAL VITAMINS W/ FOLIC ACID TABLET (FP) PO SCH (09:59)
[2022-08-13] MEDS: FLUoxetine HCL 20 MG CAPSULE PO SCH (09:59)
[2022-08-13] MEDS: amLODIPine BESYLATE 5 MG TABLET (FP) PO SCH (10:17)
[2022-08-13] MEDS: ATORVASTATIN CA 10 MG TABLET (FP) PO SCH (21:23)
[2022-08-13] MEDS: THIAMINE HCL 100 MG TABLET (FP) PO SCH (21:23)
[2022-08-13] MEDS: LIDOCAINE PATCH REMOVAL MC SCH (21:24)
[2022-08-14] MEDS: TAMSULOSIN HCL 0.4 MG CAP PO SCH (07:57)
[2022-08-14] MEDS: amLODIPine BESYLATE 5 MG TABLET (FP) PO SCH (09:11)
[2022-08-14] MEDS: PRENATAL VITAMINS W/ FOLIC ACID TABLET (FP) PO SCH (09:11)
[2022-08-14] MEDS: ASPIRIN 81 MG CHEWABLE TABLETS PO SCH (09:11)
[2022-08-14] MEDS: IBUPROFEN 600 MG TABLET (FP) PO PRN (09:13)
[2022-08-14] MEDS: METHYL SALICYLATE/MENTHOL OINT 30 GM TUBE TP PRN (09:14)
[2022-08-14] MEDS: FLUoxetine HCL 20 MG CAPSULE PO SCH (10:19)
[2022-08-14] MEDS: BACLOFEN 10 MG TABLET (FP) PO PRN (14:43)
[2022-08-14] MEDS: ATORVASTATIN CA 10 MG TABLET (FP) PO SCH (21:12)
[2022-08-14] MEDS: THIAMINE HCL 100 MG TABLET (FP) PO SCH (21:12)
[2022-08-14] MEDS: LIDOCAINE PATCH REMOVAL MC SCH (21:13)
[2022-08-15] MEDS: TAMSULOSIN HCL 0.4 MG CAP PO SCH (07:48)
[2022-08-15] MEDS: IBUPROFEN 600 MG TABLET (FP) PO PRN ×2 (08:57→18:11)
[2022-08-15] MEDS: LIDOCAINE 5% TOPICAL PATCH TP PRN (08:57)
[2022-08-15] MEDS: FLUoxetine HCL 20 MG CAPSULE PO SCH (10:34)
[2022-08-15] MEDS: ASPIRIN 81 MG CHEWABLE TABLETS PO SCH (10:34)
[2022-08-15] MEDS: PRENATAL VITAMINS W/ FOLIC ACID TABLET (FP) PO SCH (10:34)
[2022-08-15] MEDS: amLODIPine BESYLATE 5 MG TABLET (FP) PO SCH (10:35)
[2022-08-15] MEDS: THIAMINE HCL 100 MG TABLET (FP) PO SCH (21:28)
[2022-08-15] MEDS: LIDOCAINE PATCH REMOVAL MC SCH (21:28)
[2022-08-15] MEDS: ATORVASTATIN CA 10 MG TABLET (FP) PO SCH (21:28)
[2022-08-15] MEDS: BACLOFEN 10 MG TABLET (FP) PO PRN (21:28)
[2022-08-15] MEDS: SUVOREXANT 10 MG TABLET PO PRN (21:30)
[2022-08-16] MEDS: TAMSULOSIN HCL 0.4 MG CAP PO SCH (07:59)
[2022-08-16] MEDS: ASPIRIN 81 MG CHEWABLE TABLETS PO SCH (09:02)
[2022-08-16] MEDS: FLUoxetine HCL 20 MG CAPSULE PO SCH (09:02)
[2022-08-16] MEDS: PRENATAL VITAMINS W/ FOLIC ACID TABLET (FP) PO SCH (09:02)
[2022-08-16] MEDS: amLODIPine BESYLATE 5 MG TABLET (FP) PO SCH (09:02)
[2022-08-16] MEDS: LIDOCAINE 5% TOPICAL PATCH TP PRN (09:03)
[2022-08-16] MEDS: BACLOFEN 10 MG TABLET (FP) PO PRN ×2 (09:03→21:08)
[2022-08-16] MEDS: METHYL SALICYLATE/MENTHOL OINT 30 GM TUBE TP PRN (09:04)
[2022-08-16] MEDS: THIAMINE HCL 100 MG TABLET (FP) PO SCH (21:07)
[2022-08-16] MEDS: LIDOCAINE PATCH REMOVAL MC SCH (21:08)
[2022-08-16] MEDS: ATORVASTATIN CA 10 MG TABLET (FP) PO SCH (21:08)
[2022-08-16] MEDS: SUVOREXANT 10 MG TABLET PO PRN (21:08)
[2022-08-17] MEDS: TAMSULOSIN HCL 0.4 MG CAP PO SCH (08:00)
[2022-08-17] MEDS: LIDOCAINE 5% TOPICAL PATCH TP PRN (09:01)
[2022-08-17] MEDS: FLUoxetine HCL 20 MG CAPSULE PO SCH (09:01)
[2022-08-17] MEDS: METHYL SALICYLATE/MENTHOL OINT 30 GM TUBE TP PRN (09:01)
[2022-08-17] MEDS: BACLOFEN 10 MG TABLET (FP) PO PRN ×2 (09:01→21:23)
[2022-08-17] MEDS: PRENATAL VITAMINS W/ FOLIC ACID TABLET (FP) PO SCH (09:01)
[2022-08-17] MEDS: ASPIRIN 81 MG CHEWABLE TABLETS PO SCH (09:01)
[2022-08-17] MEDS: amLODIPine BESYLATE 5 MG TABLET (FP) PO SCH (11:00)
[2022-08-17] MEDS: THIAMINE HCL 100 MG TABLET (FP) PO SCH (21:22)
[2022-08-17] MEDS: ATORVASTATIN CA 10 MG TABLET (FP) PO SCH (21:23)
[2022-08-17] MEDS: SUVOREXANT 10 MG TABLET PO PRN (21:23)
[2022-08-17] MEDS: LIDOCAINE PATCH REMOVAL MC SCH (21:32)
[2022-08-18] MEDS: TAMSULOSIN HCL 0.4 MG CAP PO SCH (07:39)
[2022-08-18] MEDS: FLUoxetine HCL 20 MG CAPSULE PO SCH (10:15)
[2022-08-18] MEDS: PRENATAL VITAMINS W/ FOLIC ACID TABLET (FP) PO SCH (10:15)
[2022-08-18] MEDS: ASPIRIN 81 MG CHEWABLE TABLETS PO SCH (10:15)
[2022-08-18] MEDS: amLODIPine BESYLATE 5 MG TABLET (FP) PO SCH (10:16)
[2022-08-18] MEDS: BACLOFEN 10 MG TABLET (FP) PO PRN (18:01)
[2022-08-18] MEDS: IBUPROFEN 600 MG TABLET (FP) PO PRN (21:03)
[2022-08-18] MEDS: THIAMINE HCL 100 MG TABLET (FP) PO SCH (21:03)
[2022-08-18] MEDS: ATORVASTATIN CA 10 MG TABLET (FP) PO SCH (21:03)
[2022-08-18] MEDS: LIDOCAINE PATCH REMOVAL MC SCH (21:04)
[2022-08-19] MEDS: TAMSULOSIN HCL 0.4 MG CAP PO SCH (07:41)
[2022-08-19] MEDS: BACLOFEN 10 MG TABLET (FP) PO PRN ×2 (09:46→21:21)
[2022-08-19] MEDS: amLODIPine BESYLATE 5 MG TABLET (FP) PO SCH (09:46)
[2022-08-19] MEDS: FLUoxetine HCL 20 MG CAPSULE PO SCH (09:46)
[2022-08-19] MEDS: PRENATAL VITAMINS W/ FOLIC ACID TABLET (FP) PO SCH (09:46)
[2022-08-19] MEDS: ASPIRIN 81 MG CHEWABLE TABLETS PO SCH (09:46)
[2022-08-19] MEDS: THIAMINE HCL 100 MG TABLET (FP) PO SCH (21:21)
[2022-08-19] MEDS: ATORVASTATIN CA 10 MG TABLET (FP) PO SCH (21:21)
[2022-08-19] MEDS: SUVOREXANT 10 MG TABLET PO PRN (21:23)
[2022-08-19] MEDS: LIDOCAINE PATCH REMOVAL MC SCH (23:23)
[2022-08-20] MEDS: TAMSULOSIN HCL 0.4 MG CAP PO SCH (07:34)
[2022-08-20] MEDS: amLODIPine BESYLATE 5 MG TABLET (FP) PO SCH (10:18)
[2022-08-20] MEDS: ASPIRIN 81 MG CHEWABLE TABLETS PO SCH (10:18)
[2022-08-20] MEDS: FLUoxetine HCL 20 MG CAPSULE PO SCH (10:18)
[2022-08-20] MEDS: PRENATAL VITAMINS W/ FOLIC ACID TABLET (FP) PO SCH (10:18)
[2022-08-20] MEDS: ATORVASTATIN CA 10 MG TABLET (FP) PO SCH (21:10)
[2022-08-20] MEDS: BACLOFEN 10 MG TABLET (FP) PO PRN (21:10)
[2022-08-20] MEDS: LIDOCAINE PATCH REMOVAL MC SCH (21:10)
[2022-08-20] MEDS: SUVOREXANT 10 MG TABLET PO PRN (21:10)
[2022-08-20] MEDS: THIAMINE HCL 100 MG TABLET (FP) PO SCH (21:10)
[2022-08-21] MEDS: TAMSULOSIN HCL 0.4 MG CAP PO SCH (07:31)
[2022-08-21] MEDS: PRENATAL VITAMINS W/ FOLIC ACID TABLET (FP) PO SCH (10:00)
[2022-08-21] MEDS: FLUoxetine HCL 20 MG CAPSULE PO SCH (10:00)
[2022-08-21] MEDS: ASPIRIN 81 MG CHEWABLE TABLETS PO SCH (10:00)
[2022-08-21] MEDS: amLODIPine BESYLATE 5 MG TABLET (FP) PO SCH (10:00)
[2022-08-21] MEDS: THIAMINE HCL 100 MG TABLET (FP) PO SCH (21:09)
[2022-08-21] MEDS: ATORVASTATIN CA 10 MG TABLET (FP) PO SCH (21:10)
[2022-08-21] MEDS: BACLOFEN 10 MG TABLET (FP) PO PRN (21:10)
[2022-08-21] MEDS ORDERED: SUVOREXANT 10 MG TABLET PO PRN (22:00)
[2022-08-21] MEDS: LIDOCAINE PATCH REMOVAL MC SCH (22:00)
[2022-08-22 07:22] VITALS: TEMP 97.3
[2022-08-22] MEDS: TAMSULOSIN HCL 0.4 MG CAP PO SCH (07:32)
[2022-08-22] MEDS: PRENATAL VITAMINS W/ FOLIC ACID TABLET (FP) PO SCH (09:37)
[2022-08-22] MEDS: FLUoxetine HCL 20 MG CAPSULE PO SCH (09:37)
[2022-08-22] MEDS: amLODIPine BESYLATE 5 MG TABLET (FP) PO SCH (09:37)
[2022-08-22] MEDS: ASPIRIN 81 MG CHEWABLE TABLETS PO SCH (09:37)
[2022-08-22 09:59] VITALS: BP 100/64; PULSE 76; RESP 17
== END 2022-08-22 11:44 | disposition home or self-care (01) | DRG 772 ==
LOC: YASAS 17:37 → Y3W 19:46 → Y3E 08-11 12:50
PROVIDERS: ADMIT Allergy & Immunology; ATTEND Psychiatry & Neurology Pain Medicine
PROC: HZ42ZZZ Group Counseling for Substance Abuse Treatment, Cognitive-Behavioral (ICD-10-PCS; principal; 2022-08-09)
DX: F14.20 Cocaine dependence, uncomplicated (principal); F10.20 Alcohol dependence, uncomplicated; F12.20 Cannabis dependence, uncomplicated; F17.210 Nicotine dependence, cigarettes, uncomplicated; F19.282 Other psychoactive substance dependence with psychoactive substance-induced sleep disorder; F19.24 Other psychoactive substance dependence with psychoactive substance-induced mood disorder; F43.10 Post-traumatic stress disorder, unspecified; F32.A Depression, unspecified; E78.5 Hyperlipidemia, unspecified; I10 Essential (primary) hypertension; M17.12 Unilateral primary osteoarthritis, left knee; M54.50 Low back pain, unspecified; G89.29 Other chronic pain; R26.89 Other abnormalities of gait and mobility; E66.9 Obesity, unspecified; Z68.32 Body mass index [BMI] 32.0-32.9, adult; Z99.89 Dependence on other enabling machines and devices; Z88.8 Allergy status to other drugs, medicaments and biological substances; Z56.0 Unemployment, unspecified
CPT/HCPCS: 36415; 72100-TC-FY; 80053; 81003; 85027; 86780; 86803; 87635; J0475

== ENCOUNTER 2022-12-23 12:41 | Inpatient (IN) | payer OTHER ==
[2022-12-23 13:42] VITALS: BMI 26.9
[2022-12-23] MEDS ORDERED: MAGNESIUM HYDROX 2400MG/30ML ORAL SUSPENSION 30 ML CUP PO PRN (14:51)
[2022-12-23] MEDS ORDERED: COLLOIDAL OATMEAL 1 BAR EACH TP PRN (14:51)
[2022-12-23] MEDS ORDERED: hydrOXYzine PAMOATE 25 MG CAPSULE (FP) PO PRN (14:51)
[2022-12-23] MEDS ORDERED: NALOXONE HCL (KLOXXADO) 8 MG SPRAY NS PRN (14:51)
[2022-12-23] MEDS ORDERED: BENZONATATE 200 MG CAPSULE PO PRN (14:51)
[2022-12-23] MEDS ORDERED: BENZOCAINE/MENTHOL (CHLORASEPTIC ) LOZENGE MM PRN (14:51)
[2022-12-23] MEDS ORDERED: LOPERAMIDE HCL 2 MG CAPSULE PO PRN (14:51)
[2022-12-23] MEDS ORDERED: MAG HYDROX/AL HYDROX/SIMETH 30 ML UNIT-DOSE CUP PO PRN (14:51)
[2022-12-23] MEDS ORDERED: IBUPROFEN 400 MG TABLET (FP) PO PRN (14:51)
[2022-12-23] MEDS ORDERED: ACETAMINOPHEN 325 MG TABLET (FP) PO PRN (14:51)
[2022-12-23] MEDS ORDERED: guaiFENesin 600 MG TABLET.ER (FP) PO PRN (14:51)
[2022-12-23] MEDS ORDERED: POLYETHYLENE GLYCOL (HEALTHYLAX) 3350 17 GM PACKET PO PRN (14:51)
[2022-12-23] MEDS ORDERED: NALOXONE HCL 0.4 MG/ML VIAL IM PRN (14:51)
[2022-12-23] MEDS ORDERED: TUBERCULIN PPD 5 TU/0.1ML VIAL ID ONE ×2 (20:36→20:43)
[2022-12-23] MEDS: NICOTINE 14 MG/24 HOURS TOPICAL PATCH TD SCH (20:52)
[2022-12-23] MEDS: THIAMINE HCL 100 MG TABLET (FP) PO SCH (21:05)
[2022-12-23] MEDS: MELATONIN 5 MG TABLETS PO SCH (21:05)
[2022-12-23] MEDS: ATORVASTATIN CA 10 MG TABLET (FP) PO SCH (21:06)
[2022-12-24] MEDS: IBUPROFEN 600 MG TABLET (FP) PO PRN ×2 (02:32→09:45)
[2022-12-24] MEDS: amLODIPine BESYLATE 5 MG TABLET (FP) PO SCH (09:44)
[2022-12-24] MEDS: PRENATAL VITAMINS W/ FOLIC ACID TABLET (FP) PO SCH (09:44)
[2022-12-24] MEDS: ASPIRIN 81 MG CHEWABLE TABLETS PO SCH (09:44)
[2022-12-24] MEDS: NICOTINE 14 MG/24 HOURS TOPICAL PATCH TD SCH (09:45)
[2022-12-24] MEDS: TAMSULOSIN HCL 0.4 MG CAP PO SCH (09:45)
[2022-12-24 10:55] LABS: HEMATOCRIT 35.4 % (35.4-49); HEMOGLOBIN 11.6 GM/dL (11.7-16.9); MCH 28.8 pg (25.7-33.7); MCHC 32.7 g/dl (32.0-35.9); MEAN CELL VOLUME 87.8 fl (80-96); MEAN PLT VOLUME 9.9 fl (7.5-11.1); PLATELET COUNT 204 10^3/uL (134-434); RBC 4.04 M/mm3 (4.00-5.60); RDW 14.9 % (11.9-15.9); WHITE BLOOD COUNT 5.9 K/mm3 (4.0-10.0)
[2022-12-24 11:05] LABS: CHLORIDE 109 mmol/L (98-107); POTASSIUM 4.3 mmol/L (3.5-5.1); SODIUM 138 mmol/L (136-145)
[2022-12-24 11:27] LABS: ALBUMIN 2.9 g/dl (3.4-5.0); ANION GAP 3 mmol/L (4-13); BLOOD UREA NITROGEN 13.6 mg/dL (7-18); CALCIUM 8.4 mg/dL (8.5-10.1); CO2 26 mmol/L (21-32); GLUCOSE,RANDOM 106 mg/dL (74-106)
[2022-12-24 11:30] LABS: CREATININE 1.2 mg/dL (0.55-1.3); SGOT/AST 16 U/L (15-37); SGPT/ALT 15 U/L (13-61)
[2022-12-24 11:33] LABS: ALK PHOS 71 U/L (45-117); BILIRUBIN,TOTAL 0.7 mg/dL (0.2-1)
[2022-12-24 11:34] LABS: SYPHILIS W/ RPR CONF NON-REACTIVE (NONREACTIVE)
[2022-12-24] MEDS: LIDOCAINE 4% PATCH TP SCH (11:58)
[2022-12-24] MEDS: BACLOFEN 10 MG TABLET (FP) PO SCH ×2 (14:01→21:07)
[2022-12-24 19:36] LABS: URINE APPEARANCE CLEAR; URINE BILIRUBIN NEGATIVE (NEGATIVE); URINE COLOR YELLOW; URINE GLUCOSE (UA) NEGATIVE (NEGATIVE); URINE KETONE NEGATIVE (NEGATIVE); URINE LEUK ESTERASE NEGATIVE (NEGATIVE); URINE NITRITE NEGATIVE (NEGATIVE); URINE PROTEIN NEGATIVE (NEGATIVE)
[2022-12-24] MEDS: THIAMINE HCL 100 MG TABLET (FP) PO SCH (21:07)
[2022-12-24] MEDS: LIDOCAINE PATCH REMOVAL MC SCH (21:07)
[2022-12-24] MEDS: MIRTAZAPINE 15 MG TABLET (FP) PO SCH (21:07)
[2022-12-24] MEDS: ATORVASTATIN CA 10 MG TABLET (FP) PO SCH (21:07)
[2022-12-24] MEDS: MELATONIN 5 MG TABLETS PO SCH (21:07)
[2022-12-25] MEDS: BACLOFEN 10 MG TABLET (FP) PO SCH ×3 (06:08→21:05)
[2022-12-25] MEDS: TAMSULOSIN HCL 0.4 MG CAP PO SCH (07:40)
[2022-12-25] MEDS: ARIPiprazole 5 MG TABLET PO SCH (09:33)
[2022-12-25] MEDS: ASPIRIN 81 MG CHEWABLE TABLETS PO SCH (09:33)
[2022-12-25] MEDS: FLUoxetine HCL 20 MG CAPSULE PO SCH (09:34)
[2022-12-25] MEDS: amLODIPine BESYLATE 5 MG TABLET (FP) PO SCH (09:34)
[2022-12-25] MEDS: IBUPROFEN 600 MG TABLET (FP) PO PRN (09:34)
[2022-12-25] MEDS: LIDOCAINE 4% PATCH TP SCH (09:34)
[2022-12-25] MEDS: PRENATAL VITAMINS W/ FOLIC ACID TABLET (FP) PO SCH (09:34)
[2022-12-25] MEDS: NICOTINE 14 MG/24 HOURS TOPICAL PATCH TD SCH (09:36)
[2022-12-25] MEDS: SALICYLIC ACID (WART REMOVER) 9 ML LIQUID TP SCH (09:37)
[2022-12-25] MEDS ORDERED: ARIPiprazole 5 MG TABLET PO SCH (10:00)
[2022-12-25] MEDS: METHYL SALICYLATE/MENTHOL OINT 30 GM TUBE TP SCH ×2 (13:08→21:51)
[2022-12-25] MEDS ORDERED: NICOTINE 14 MG/24 HOURS TOPICAL PATCH TD PRN (15:51)
[2022-12-25] MEDS: MELATONIN 5 MG TABLETS PO SCH (21:05)
[2022-12-25] MEDS: ATORVASTATIN CA 10 MG TABLET (FP) PO SCH (21:05)
[2022-12-25] MEDS: MIRTAZAPINE 15 MG TABLET (FP) PO SCH (21:05)
[2022-12-25] MEDS: THIAMINE HCL 100 MG TABLET (FP) PO SCH (21:05)
[2022-12-25] MEDS: LIDOCAINE PATCH REMOVAL MC SCH (21:06)
[2022-12-26] MEDS: BACLOFEN 10 MG TABLET (FP) PO SCH ×3 (06:08→21:15)
[2022-12-26] MEDS: TAMSULOSIN HCL 0.4 MG CAP PO SCH (07:37)
[2022-12-26] MEDS: ARIPiprazole 5 MG TABLET PO SCH (09:23)
[2022-12-26] MEDS: ASPIRIN 81 MG CHEWABLE TABLETS PO SCH (09:24)
[2022-12-26] MEDS: METHYL SALICYLATE/MENTHOL OINT 30 GM TUBE TP SCH ×2 (09:24→21:16)
[2022-12-26] MEDS: LIDOCAINE 4% PATCH TP SCH (09:24)
[2022-12-26] MEDS: amLODIPine BESYLATE 5 MG TABLET (FP) PO SCH (09:25)
[2022-12-26] MEDS: PRENATAL VITAMINS W/ FOLIC ACID TABLET (FP) PO SCH (09:25)
[2022-12-26] MEDS: IBUPROFEN 600 MG TABLET (FP) PO PRN (09:25)
[2022-12-26] MEDS: FLUoxetine HCL 20 MG CAPSULE PO SCH (09:25)
[2022-12-26] MEDS: SALICYLIC ACID (WART REMOVER) 9 ML LIQUID TP SCH (11:00)
[2022-12-26] MEDS: THIAMINE HCL 100 MG TABLET (FP) PO SCH (21:15)
[2022-12-26] MEDS: LIDOCAINE PATCH REMOVAL MC SCH (21:15)
[2022-12-26] MEDS: MIRTAZAPINE 15 MG TABLET (FP) PO SCH (21:15)
[2022-12-26] MEDS: ATORVASTATIN CA 10 MG TABLET (FP) PO SCH (21:15)
[2022-12-26] MEDS: MELATONIN 5 MG TABLETS PO SCH (21:15)
[2022-12-27] MEDS: BACLOFEN 10 MG TABLET (FP) PO SCH ×3 (06:06→21:29)
[2022-12-27] MEDS: TAMSULOSIN HCL 0.4 MG CAP PO SCH (08:31)
[2022-12-27] MEDS: ARIPiprazole 5 MG TABLET PO SCH (09:44)
[2022-12-27] MEDS: PRENATAL VITAMINS W/ FOLIC ACID TABLET (FP) PO SCH (09:44)
[2022-12-27] MEDS: ASPIRIN 81 MG CHEWABLE TABLETS PO SCH (09:44)
[2022-12-27] MEDS: amLODIPine BESYLATE 5 MG TABLET (FP) PO SCH (09:44)
[2022-12-27] MEDS: FLUoxetine HCL 20 MG CAPSULE PO SCH (09:44)
[2022-12-27] MEDS: IBUPROFEN 600 MG TABLET (FP) PO PRN ×2 (09:44→14:49)
[2022-12-27] MEDS: LIDOCAINE 4% PATCH TP SCH (09:46)
[2022-12-27] MEDS: METHYL SALICYLATE/MENTHOL OINT 30 GM TUBE TP SCH ×2 (09:46→23:21)
[2022-12-27] MEDS: SALICYLIC ACID (WART REMOVER) 9 ML LIQUID TP SCH (09:57)
[2022-12-27] MEDS: THIAMINE HCL 100 MG TABLET (FP) PO SCH (21:29)
[2022-12-27] MEDS: ATORVASTATIN CA 10 MG TABLET (FP) PO SCH (21:29)
[2022-12-27] MEDS: MELATONIN 5 MG TABLETS PO SCH (21:30)
[2022-12-27] MEDS: MIRTAZAPINE 15 MG TABLET (FP) PO SCH (21:30)
[2022-12-27] MEDS: LIDOCAINE PATCH REMOVAL MC SCH (23:22)
[2022-12-28] MEDS: BACLOFEN 10 MG TABLET (FP) PO SCH ×3 (06:12→21:14)
[2022-12-28] MEDS: TAMSULOSIN HCL 0.4 MG CAP PO SCH (07:36)
[2022-12-28] MEDS: FLUoxetine HCL 20 MG CAPSULE PO SCH (09:27)
[2022-12-28] MEDS: PRENATAL VITAMINS W/ FOLIC ACID TABLET (FP) PO SCH (09:27)
[2022-12-28] MEDS: ARIPiprazole 5 MG TABLET PO SCH (09:27)
[2022-12-28] MEDS: ASPIRIN 81 MG CHEWABLE TABLETS PO SCH (09:27)
[2022-12-28] MEDS: amLODIPine BESYLATE 5 MG TABLET (FP) PO SCH (09:27)
[2022-12-28] MEDS: LIDOCAINE 4% PATCH TP SCH (09:28)
[2022-12-28] MEDS: METHYL SALICYLATE/MENTHOL OINT 30 GM TUBE TP SCH ×2 (09:28→21:15)
[2022-12-28] MEDS: SALICYLIC ACID (WART REMOVER) 9 ML LIQUID TP SCH (09:32)
[2022-12-28] MEDS: IBUPROFEN 600 MG TABLET (FP) PO PRN (09:32)
[2022-12-28] MEDS: ATORVASTATIN CA 10 MG TABLET (FP) PO SCH (21:14)
[2022-12-28] MEDS: MELATONIN 5 MG TABLETS PO SCH (21:15)
[2022-12-28] MEDS: THIAMINE HCL 100 MG TABLET (FP) PO SCH (21:15)
[2022-12-28] MEDS: MIRTAZAPINE 15 MG TABLET (FP) PO SCH (21:15)
[2022-12-28] MEDS: LIDOCAINE PATCH REMOVAL MC SCH (21:58)
[2022-12-29] MEDS: BACLOFEN 10 MG TABLET (FP) PO SCH ×3 (06:09→21:28)
[2022-12-29] MEDS: TAMSULOSIN HCL 0.4 MG CAP PO SCH (07:39)
[2022-12-29] MEDS: ARIPiprazole 5 MG TABLET PO SCH (09:36)
[2022-12-29] MEDS: METHYL SALICYLATE/MENTHOL OINT 30 GM TUBE TP SCH ×2 (09:37→21:28)
[2022-12-29] MEDS: ASPIRIN 81 MG CHEWABLE TABLETS PO SCH (09:37)
[2022-12-29] MEDS: LIDOCAINE 4% PATCH TP SCH (09:37)
[2022-12-29] MEDS: amLODIPine BESYLATE 5 MG TABLET (FP) PO SCH (09:38)
[2022-12-29] MEDS: PRENATAL VITAMINS W/ FOLIC ACID TABLET (FP) PO SCH (09:38)
[2022-12-29] MEDS: FLUoxetine HCL 20 MG CAPSULE PO SCH (09:38)
[2022-12-29] MEDS: SALICYLIC ACID (WART REMOVER) 9 ML LIQUID TP SCH (09:39)
[2022-12-29] MEDS: ATORVASTATIN CA 10 MG TABLET (FP) PO SCH (21:28)
[2022-12-29] MEDS: MELATONIN 5 MG TABLETS PO SCH (21:28)
[2022-12-29] MEDS: MIRTAZAPINE 15 MG TABLET (FP) PO SCH (21:28)
[2022-12-29] MEDS: THIAMINE HCL 100 MG TABLET (FP) PO SCH (21:28)
[2022-12-29] MEDS: LIDOCAINE PATCH REMOVAL MC SCH (21:28)
[2022-12-30] MEDS: BACLOFEN 10 MG TABLET (FP) PO SCH ×3 (06:13→21:06)
[2022-12-30] MEDS: TAMSULOSIN HCL 0.4 MG CAP PO SCH (07:44)
[2022-12-30] MEDS: amLODIPine BESYLATE 5 MG TABLET (FP) PO SCH (09:47)
[2022-12-30] MEDS: ARIPiprazole 5 MG TABLET PO SCH (09:47)
[2022-12-30] MEDS: FLUoxetine HCL 20 MG CAPSULE PO SCH (09:47)
[2022-12-30] MEDS: ASPIRIN 81 MG CHEWABLE TABLETS PO SCH (09:47)
[2022-12-30] MEDS: METHYL SALICYLATE/MENTHOL OINT 30 GM TUBE TP SCH ×2 (09:48→21:06)
[2022-12-30] MEDS: LIDOCAINE 4% PATCH TP SCH (09:48)
[2022-12-30] MEDS: PRENATAL VITAMINS W/ FOLIC ACID TABLET (FP) PO SCH (09:48)
[2022-12-30] MEDS: SALICYLIC ACID (WART REMOVER) 9 ML LIQUID TP SCH (10:08)
[2022-12-30] MEDS: MIRTAZAPINE 15 MG TABLET (FP) PO SCH (21:04)
[2022-12-30] MEDS: MELATONIN 5 MG TABLETS PO SCH (21:04)
[2022-12-30] MEDS: THIAMINE HCL 100 MG TABLET (FP) PO SCH (21:04)
[2022-12-30] MEDS: ATORVASTATIN CA 10 MG TABLET (FP) PO SCH (21:04)
[2022-12-30] MEDS: LIDOCAINE PATCH REMOVAL MC SCH (21:06)
[2022-12-31] MEDS: BACLOFEN 10 MG TABLET (FP) PO SCH (06:11)
[2022-12-31] MEDS: TAMSULOSIN HCL 0.4 MG CAP PO SCH (07:47)
[2022-12-31] MEDS: amLODIPine BESYLATE 5 MG TABLET (FP) PO SCH (09:03)
[2022-12-31] MEDS: ASPIRIN 81 MG CHEWABLE TABLETS PO SCH (09:03)
[2022-12-31] MEDS: FLUoxetine HCL 20 MG CAPSULE PO SCH (09:03)
[2022-12-31] MEDS: ARIPiprazole 5 MG TABLET PO SCH (09:03)
[2022-12-31] MEDS: LIDOCAINE 4% PATCH TP SCH (09:04)
[2022-12-31] MEDS: METHYL SALICYLATE/MENTHOL OINT 30 GM TUBE TP SCH (09:04)
[2022-12-31] MEDS: PRENATAL VITAMINS W/ FOLIC ACID TABLET (FP) PO SCH (09:04)
[2022-12-31 09:11] VITALS: BP 130/93; PULSE 102; RESP 18; TEMP 97.8
[2022-12-31] MEDS: SALICYLIC ACID (WART REMOVER) 9 ML LIQUID TP SCH (09:18)
== END 2022-12-31 09:11 | disposition home or self-care (01) | DRG 772 ==
LOC: YASAS 12:41 → Y3W 19:34 → Y3E 12-24 15:09
PROVIDERS: ADMIT Allergy & Immunology; ATTEND Psychiatry & Neurology Pain Medicine
PROC: HZ42ZZZ Group Counseling for Substance Abuse Treatment, Cognitive-Behavioral (ICD-10-PCS; principal; 2022-12-23)
DX: F14.10 Cocaine abuse, uncomplicated (principal); F10.20 Alcohol dependence, uncomplicated; F12.20 Cannabis dependence, uncomplicated; F17.210 Nicotine dependence, cigarettes, uncomplicated; F31.9 Bipolar disorder, unspecified; F25.9 Schizoaffective disorder, unspecified; F19.282 Other psychoactive substance dependence with psychoactive substance-induced sleep disorder; F43.10 Post-traumatic stress disorder, unspecified; E78.5 Hyperlipidemia, unspecified; I10 Essential (primary) hypertension; M17.11 Unilateral primary osteoarthritis, right knee; N40.0 Benign prostatic hyperplasia without lower urinary tract symptoms; Z88.8 Allergy status to other drugs, medicaments and biological substances; S49.92XA Unspecified injury of left shoulder and upper arm, initial encounter; W19.XXXA Unspecified fall, initial encounter; Y92.230 Patient room in hospital as the place of occurrence of the external cause
CPT/HCPCS: 36415; 73030-TC-LT-FY; 80053; 80307; 81003; 85027; 86780; 86803; 87635; J0475

== ENCOUNTER 2023-02-10 11:38 | Inpatient (IN) | payer OTHER ==
[2023-02-10 12:08] VITALS: BMI 25.7
[2023-02-10] MEDS ORDERED: NALOXONE HCL 0.4 MG/ML VIAL IM PRN (13:02)
[2023-02-10] MEDS ORDERED: MAG HYDROX/AL HYDROX/SIMETH 30 ML UNIT-DOSE CUP PO PRN (13:02)
[2023-02-10] MEDS ORDERED: NALOXONE HCL (KLOXXADO) 8 MG SPRAY NS PRN (13:02)
[2023-02-10] MEDS ORDERED: MAGNESIUM HYDROX 2400MG/30ML ORAL SUSPENSION 30 ML CUP PO PRN (13:02)
[2023-02-10] MEDS ORDERED: POLYETHYLENE GLYCOL (HEALTHYLAX) 3350 17 GM PACKET PO PRN (13:02)
[2023-02-10] MEDS ORDERED: BENZONATATE 200 MG CAPSULE PO PRN (13:02)
[2023-02-10] MEDS ORDERED: hydrOXYzine PAMOATE 25 MG CAPSULE (FP) PO PRN (13:02)
[2023-02-10] MEDS ORDERED: IBUPROFEN 600 MG TABLET (FP) PO PRN (13:02)
[2023-02-10] MEDS ORDERED: IBUPROFEN 400 MG TABLET (FP) PO PRN (13:02)
[2023-02-10] MEDS ORDERED: ACETAMINOPHEN 325 MG TABLET (FP) PO PRN (13:02)
[2023-02-10] MEDS ORDERED: guaiFENesin 600 MG TABLET.ER (FP) PO PRN (13:02)
[2023-02-10] MEDS ORDERED: COLLOIDAL OATMEAL 1 BAR EACH TP PRN (13:02)
[2023-02-10] MEDS ORDERED: NICOTINE POLACRILEX 2 MG GUM BUC PRN (13:02)
[2023-02-10] MEDS ORDERED: LOPERAMIDE HCL 2 MG CAPSULE PO PRN (13:02)
[2023-02-10] MEDS ORDERED: BENZOCAINE/MENTHOL (CHLORASEPTIC ) LOZENGE MM PRN (13:02)
[2023-02-10] MEDS: BACLOFEN 10 MG TABLET (FP) PO SCH ×2 (16:07→21:14)
[2023-02-10] MEDS: MELATONIN 5 MG TABLETS PO SCH (21:14)
[2023-02-10] MEDS: THIAMINE HCL 100 MG TABLET (FP) PO SCH (21:14)
[2023-02-10] MEDS: ATORVASTATIN CA 10 MG TABLET (FP) PO SCH (21:15)
[2023-02-11 02:24] LABS: EPI CELLS 35 /uL (0-25.1); HYALINE CASTS 4 /uL (0-3.1); PH,URINE 5.5 (5.0-8.0); URINE APPEARANCE TURBID; URINE BACTERIA 8 /uL (0-1359); URINE BILIRUBIN NEGATIVE (NEGATIVE); URINE COLOR YELLOW; URINE GLUCOSE (UA) NEGATIVE (NEGATIVE); URINE KETONE NEGATIVE (NEGATIVE); URINE LEUK ESTERASE TRACE (NEGATIVE); URINE NITRITE NEGATIVE (NEGATIVE); URINE PROTEIN TRACE (NEGATIVE); URINE RBC 4 /uL (0-23.9); URINE WBC 69 /uL (0-25.8)
[2023-02-11] MEDS: BACLOFEN 10 MG TABLET (FP) PO SCH ×3 (07:00→21:10)
[2023-02-11] MEDS: TAMSULOSIN HCL 0.4 MG CAP PO SCH (07:43)
[2023-02-11] MEDS: PRENATAL VITAMINS W/ FOLIC ACID TABLET (FP) PO SCH (09:20)
[2023-02-11] MEDS: ASPIRIN 81 MG CHEWABLE TABLETS PO SCH (09:20)
[2023-02-11] MEDS: amLODIPine BESYLATE 5 MG TABLET (FP) PO SCH (09:20)
[2023-02-11] MEDS: ARIPiprazole 10 MG TABLET PO SCH (10:03)
[2023-02-11 12:22] LABS: POTASSIUM 4.2 mmol/L (3.5-5.1)
[2023-02-11 12:30] LABS: ALBUMIN 3.7 g/dl (3.4-5.0)
[2023-02-11 12:31] LABS: BLOOD UREA NITROGEN 21.2 mg/dL (7-18)
[2023-02-11 12:33] LABS: CREATININE 1.7 mg/dL (0.55-1.3)
[2023-02-11 12:35] LABS: TOT PROT 7.6 g/dl (6.4-8.2)
[2023-02-11 12:37] LABS: BILIRUBIN,TOTAL 0.6 mg/dL (0.2-1)
[2023-02-11 12:46] LABS: HEMATOCRIT 38.6 % (35.4-49); HEMOGLOBIN 12.3 GM/dL (11.7-16.9); MCH 28.5 pg (25.7-33.7); MCHC 31.9 g/dl (32.0-35.9); MEAN CELL VOLUME 89.5 fl (80-96); MEAN PLT VOLUME 10.7 fl (7.5-11.1); PLATELET COUNT 246 10^3/uL (134-434); RBC 4.31 M/mm3 (4.00-5.60); RDW 15.1 % (11.9-15.9); WHITE BLOOD COUNT 6.3 K/mm3 (4.0-10.0)
[2023-02-11] MEDS: LIDOCAINE 4% PATCH TP SCH (13:44)
[2023-02-11] MEDS: MELATONIN 5 MG TABLETS PO SCH (21:10)
[2023-02-11] MEDS: THIAMINE HCL 100 MG TABLET (FP) PO SCH (21:10)
[2023-02-11] MEDS: ATORVASTATIN CA 10 MG TABLET (FP) PO SCH (21:10)
[2023-02-11] MEDS ORDERED: MIRTAZAPINE 15 MG TABLET (FP) PO SCH (22:00)
[2023-02-11] MEDS ORDERED: LIDOCAINE PATCH REMOVAL MC SCH (22:00)
[2023-02-12] MEDS: BACLOFEN 10 MG TABLET (FP) PO SCH ×2 (06:25→14:00)
[2023-02-12] MEDS: TAMSULOSIN HCL 0.4 MG CAP PO SCH (07:52)
[2023-02-12] MEDS: amLODIPine BESYLATE 5 MG TABLET (FP) PO SCH (09:13)
[2023-02-12] MEDS: ARIPiprazole 10 MG TABLET PO SCH (09:13)
[2023-02-12] MEDS: ASPIRIN 81 MG CHEWABLE TABLETS PO SCH (09:13)
[2023-02-12] MEDS: PRENATAL VITAMINS W/ FOLIC ACID TABLET (FP) PO SCH (09:14)
[2023-02-12] MEDS: LIDOCAINE 4% PATCH TP SCH (10:56)
[2023-02-12] MEDS ORDERED: P-EPHED 60MG/TRIPROLIDI 2.5MG TABLET PO PRN (13:07)
[2023-02-12] MEDS ORDERED: AZITHROMYCIN 250 MG TABLET PO ONE (13:30)
[2023-02-12 18:39] VITALS: BP 130/76; PULSE 72; RESP 18; TEMP 97.7
[2023-02-13] MEDS ORDERED: AZITHROMYCIN 250 MG TABLET PO SCH (10:00)
== END 2023-02-12 18:46 | disposition left against medical advice (07) | DRG 770 ==
LOC: YASAS 11:38 → Y3E 15:36
PROVIDERS: ADMIT Allergy & Immunology; ATTEND Psychiatry & Neurology Pain Medicine
PROC: HZ42ZZZ Group Counseling for Substance Abuse Treatment, Cognitive-Behavioral (ICD-10-PCS; principal; 2023-02-10)
DX: F14.20 Cocaine dependence, uncomplicated (principal); F12.20 Cannabis dependence, uncomplicated; F17.210 Nicotine dependence, cigarettes, uncomplicated; F19.282 Other psychoactive substance dependence with psychoactive substance-induced sleep disorder; F19.24 Other psychoactive substance dependence with psychoactive substance-induced mood disorder; F20.9 Schizophrenia, unspecified; F32.A Depression, unspecified; J18.9 Pneumonia, unspecified organism; I10 Essential (primary) hypertension; E78.5 Hyperlipidemia, unspecified; M17.12 Unilateral primary osteoarthritis, left knee; R26.89 Other abnormalities of gait and mobility; Z88.8 Allergy status to other drugs, medicaments and biological substances
CPT/HCPCS: 0241U-QW; 36415; 80053; 80307; 81003; 83036; 85027; 86780; 87635; J0475

== ENCOUNTER 2023-04-20 10:59 | Inpatient (IN) | payer OTHER ==
[2023-04-20 11:24] VITALS: BMI 28.3
[2023-04-20] MEDS ORDERED: NICOTINE POLACRILEX 2 MG GUM BUC PRN (11:59)
[2023-04-20] MEDS ORDERED: IBUPROFEN 400 MG TABLET (FP) PO PRN (11:59)
[2023-04-20] MEDS ORDERED: BENZOCAINE/MENTHOL (CHLORASEPTIC ) LOZENGE MM PRN (11:59)
[2023-04-20] MEDS ORDERED: BENZONATATE 200 MG CAPSULE PO PRN (11:59)
[2023-04-20] MEDS ORDERED: LOPERAMIDE HCL 2 MG CAPSULE PO PRN (11:59)
[2023-04-20] MEDS ORDERED: NALOXONE HCL (KLOXXADO) 8 MG SPRAY NS PRN (11:59)
[2023-04-20] MEDS ORDERED: MAGNESIUM HYDROX 2400MG/30ML ORAL SUSPENSION 30 ML CUP PO PRN (11:59)
[2023-04-20] MEDS ORDERED: NALOXONE HCL 0.4 MG/ML VIAL IM PRN (11:59)
[2023-04-20] MEDS ORDERED: guaiFENesin 600 MG TABLET.ER (FP) PO PRN (11:59)
[2023-04-20] MEDS ORDERED: POLYETHYLENE GLYCOL (HEALTHYLAX) 3350 17 GM PACKET PO PRN (11:59)
[2023-04-20] MEDS ORDERED: ACETAMINOPHEN 325 MG TABLET (FP) PO PRN (11:59)
[2023-04-20] MEDS: THIAMINE HCL 100 MG TABLET (FP) PO SCH (21:43)
[2023-04-20] MEDS: MIRTAZAPINE 15 MG TABLET (FP) PO SCH (21:43)
[2023-04-20] MEDS ORDERED: MELATONIN 5 MG TABLETS PO SCH (22:00)
[2023-04-21] MEDS: NICOTINE 21 MG/24 HOURS TOPICAL PATCH TD SCH (09:54)
[2023-04-21] MEDS: PRENATAL VITAMINS W/ FOLIC ACID TABLET (FP) PO SCH (09:54)
[2023-04-21] MEDS: ARIPiprazole 10 MG TABLET PO SCH (09:55)
[2023-04-21] MEDS ORDERED: ARIPiprazole 5 MG TABLET PO SCH (10:00)
[2023-04-21] MEDS: amLODIPine BESYLATE 10 MG TABLET (FP) PO SCH (10:56)
[2023-04-21] MEDS: ASPIRIN 81 MG CHEWABLE TABLETS PO SCH (10:56)
[2023-04-21] MEDS: TAMSULOSIN HCL 0.4 MG CAP PO SCH (10:56)
[2023-04-21 12:14] LABS: HEMOGLOBIN 12.7 GM/dL (11.7-16.9); MCH 29.2 pg (25.7-33.7); MCHC 33.3 g/dl (32.0-35.9); MEAN CELL VOLUME 87.7 fl (80-96); MEAN PLT VOLUME 10.6 fl (7.5-11.1); PLATELET COUNT 158 10^3/uL (134-434); RBC 4.33 M/mm3 (4.00-5.60); WHITE BLOOD COUNT 2.9 K/mm3 (4.0-10.0)
[2023-04-21 12:18] LABS: POTASSIUM 4.5 mmol/L (3.5-5.1)
[2023-04-21 12:27] LABS: ALBUMIN 3.4 g/dl (3.4-5.0); BLOOD UREA NITROGEN 9.7 mg/dL (7-18)
[2023-04-21 12:30] LABS: CREATININE 0.9 mg/dL (0.55-1.3)
[2023-04-21 12:32] LABS: TOT PROT 7.1 g/dl (6.4-8.2)
[2023-04-21 12:33] LABS: BILIRUBIN,TOTAL 0.3 mg/dL (0.2-1)
[2023-04-22] MEDS: TAMSULOSIN HCL 0.4 MG CAP PO SCH (09:45)
[2023-04-22 11:58] LABS: URINE APPEARANCE CLEAR; URINE BILIRUBIN NEGATIVE (NEGATIVE); URINE COLOR YELLOW; URINE GLUCOSE (UA) NEGATIVE (NEGATIVE); URINE KETONE NEGATIVE (NEGATIVE); URINE LEUK ESTERASE NEGATIVE (NEGATIVE); URINE NITRITE NEGATIVE (NEGATIVE); URINE PROTEIN NEGATIVE (NEGATIVE); URINE UROBILINOGEN 0.2 mg/dL (0.2-1.0)
[2023-04-22] MEDS: ASPIRIN 81 MG CHEWABLE TABLETS PO SCH (16:03)
[2023-04-22] MEDS: ATORVASTATIN CA 10 MG TABLET (FP) PO SCH (21:17)
[2023-04-22] MEDS: hydrOXYzine PAMOATE 25 MG CAPSULE (FP) PO PRN (21:17)
[2023-04-23] MEDS: MELATONIN 5 MG TABLETS PO ONE (01:21)
[2023-04-23 13:16] LABS: HIV INTERPRETATION NEGATIVE (NEGATIVE)
[2023-04-23] MEDS: MAG HYDROX/AL HYDROX/SIMETH 30 ML UNIT-DOSE CUP PO PRN (15:44)
[2023-04-23] MEDS: IBUPROFEN 600 MG TABLET (FP) PO PRN (19:35)
[2023-04-23] MEDS: SUVOREXANT 10 MG TABLET PO PRN (21:14)
[2023-04-24] MEDS ORDERED: hydrOXYzine PAMOATE 25 MG CAPSULE (FP) PO PRN (10:52)
[2023-04-24] MEDS: BACLOFEN 10 MG TABLET (FP) PO SCH (12:16)
[2023-04-25] MEDS: SUVOREXANT 15 MG TABLET PO PRN (21:07)
[2023-04-28] MEDS: ASPIRIN 81 MG CHEWABLE TABLETS PO SCH (09:31)
[2023-04-28] MEDS: SUVOREXANT 15 MG TABLET PO PRN (21:04)
[2023-04-29] MEDS: CARBAMIDE PEROXIDE 6.5% OTIC 15 ML BOTTLE AU PRN (15:39)
[2023-05-01 07:18] VITALS: RESP 18
[2023-05-01] MEDS: SUVOREXANT 15 MG TABLET PO PRN (21:16)
[2023-05-02 17:22] VITALS: BP 136/67; PULSE 71; TEMP 97.4
== END 2023-05-02 19:45 | disposition home or self-care (01) | DRG 772 ==
LOC: YASAS 10:59 → Y5N 14:06
PROVIDERS: ADMIT Allergy & Immunology; ATTEND Psychiatry & Neurology Pain Medicine
PROC: HZ42ZZZ Group Counseling for Substance Abuse Treatment, Cognitive-Behavioral (ICD-10-PCS; principal; 2023-04-20)
DX: F10.20 Alcohol dependence, uncomplicated (principal); F14.20 Cocaine dependence, uncomplicated; F12.20 Cannabis dependence, uncomplicated; F17.210 Nicotine dependence, cigarettes, uncomplicated; F31.9 Bipolar disorder, unspecified; F20.9 Schizophrenia, unspecified; F19.24 Other psychoactive substance dependence with psychoactive substance-induced mood disorder; E78.2 Mixed hyperlipidemia; G47.00 Insomnia, unspecified; I10 Essential (primary) hypertension; H61.23 Impacted cerumen, bilateral; H81.10 Benign paroxysmal vertigo, unspecified ear; N40.0 Benign prostatic hyperplasia without lower urinary tract symptoms; Z88.8 Allergy status to other drugs, medicaments and biological substances
CPT/HCPCS: 36415; 80053; 80305; 80307; 81003; 82962; 85027; 86780; 87389; 87635; 93005; 93010; J0475

== ENCOUNTER 2023-08-14 12:18 | Inpatient (IN) | payer OTHER ==
[2023-08-14 14:00] VITALS: BMI 31.4
[2023-08-14] MEDS ORDERED: NICOTINE POLACRILEX 2 MG LOZENGE BC PRN (14:16)
[2023-08-14] MEDS ORDERED: BENZONATATE 200 MG CAPSULE PO PRN (14:16)
[2023-08-14] MEDS ORDERED: POLYETHYLENE GLYCOL (HEALTHYLAX) 3350 17 GM PACKET PO PRN (14:16)
[2023-08-14] MEDS ORDERED: MAG HYDROX/AL HYDROX/SIMETH 30 ML UNIT-DOSE CUP PO PRN (14:16)
[2023-08-14] MEDS ORDERED: LOPERAMIDE HCL 2 MG CAPSULE PO PRN (14:16)
[2023-08-14] MEDS ORDERED: guaiFENesin 600 MG TABLET.ER (FP) PO PRN (14:16)
[2023-08-14] MEDS ORDERED: MAGNESIUM HYDROX 2400MG/30ML ORAL SUSPENSION 30 ML CUP PO PRN (14:16)
[2023-08-14] MEDS ORDERED: NICOTINE POLACRILEX 2 MG GUM BUC PRN (14:16)
[2023-08-14] MEDS ORDERED: IBUPROFEN 400 MG TABLET (FP) PO PRN (14:16)
[2023-08-14] MEDS: IBUPROFEN 600 MG TABLET (FP) PO PRN (21:05)
[2023-08-14] MEDS: THIAMINE 100 MG TABLET PO SCH (21:05)
[2023-08-14] MEDS: ATORVASTATIN CA 10 MG TABLET (FP) PO SCH (21:05)
[2023-08-14] MEDS: MELATONIN 5 MG TABLETS PO SCH (21:05)
[2023-08-15] MEDS: TAMSULOSIN HCL 0.4 MG CAP PO SCH (07:39)
[2023-08-15] MEDS: PRENATAL VITAMINS W/ FOLIC ACID TABLET (FP) PO SCH (09:18)
[2023-08-15] MEDS: FOLIC ACID 1 MG TABLET (FP) PO SCH (09:18)
[2023-08-15] MEDS: ASPIRIN 81 MG CHEWABLE TABLETS PO SCH (09:18)
[2023-08-15] MEDS: amLODIPine BESYLATE 5 MG TABLET (FP) PO SCH (10:27)
[2023-08-15 11:11] LABS: HEMOGLOBIN 12.8 GM/dL (11.7-16.9); MCH 28.9 pg (25.7-33.7); MCHC 32.9 g/dl (32.0-35.9); MEAN CELL VOLUME 87.8 fl (80-96); MEAN PLT VOLUME 10.1 fl (7.5-11.1); PLATELET COUNT 215 10^3/uL (134-434); RBC 4.44 M/mm3 (4.00-5.60); RDW 15.2 % (11.9-15.9); WHITE BLOOD COUNT 7.3 K/mm3 (4.0-10.0)
[2023-08-15 11:18] LABS: POTASSIUM 4.2 mmol/L (3.5-5.1)
[2023-08-15 11:27] LABS: ALBUMIN 3.8 g/dl (3.4-5.0); BLOOD UREA NITROGEN 25.3 mg/dL (7-18); CALCIUM 8.9 mg/dL (8.5-10.1)
[2023-08-15 11:30] LABS: CREATININE 1.7 mg/dL (0.55-1.3)
[2023-08-15 11:32] LABS: BILIRUBIN,TOTAL 0.5 mg/dL (0.2-1); TOT PROT 7.7 g/dl (6.4-8.2)
[2023-08-15] MEDS ORDERED: BACLOFEN 10 MG TABLET (FP) PO SCH (14:00)
[2023-08-15] MEDS: hydrOXYzine PAMOATE 25 MG CAPSULE (FP) PO PRN (15:37)
[2023-08-15] MEDS: QUEtiapine FUMARATE 50 MG TABLET PO SCH (21:03)
[2023-08-15] MEDS ORDERED: buPROPion HCL 100 MG TABLET PO SCH (22:00)
[2023-08-16] MEDS: ARIPiprazole 15 MG TABLET PO SCH (09:42)
[2023-08-17] MEDS: FLUoxetine HCL 20 MG CAPSULE PO SCH (12:16)
[2023-08-18] MEDS: buPROPion HCL 100 MG TABLET PO SCH (10:38)
[2023-08-19] MEDS: QUEtiapine FUMARATE 100 MG TABLET (FP) PO SCH (21:32)
[2023-08-21] MEDS: BACLOFEN 10 MG TABLET (FP) PO PRN (21:18)
[2023-08-25] MEDS: LIDOCAINE 5% TOPICAL PATCH TP SCH (10:00)
[2023-08-25 16:07] LABS: POTASSIUM 4.7 mmol/L (3.5-5.1)
[2023-08-25 16:13] LABS: ALBUMIN 3.8 g/dl (3.4-5.0); BLOOD UREA NITROGEN 18.8 mg/dL (7-18); CALCIUM 8.9 mg/dL (8.5-10.1)
[2023-08-25 16:17] LABS: CREATININE 1.3 mg/dL (0.55-1.3)
[2023-08-25 16:19] LABS: BILIRUBIN,TOTAL 0.3 mg/dL (0.2-1)
[2023-08-25] MEDS: LIDOCAINE PATCH REMOVAL MC SCH (21:20)
[2023-08-29 06:28] VITALS: RESP 18
[2023-09-03] MEDS: ACETAMINOPHEN 325 MG TABLET (FP) PO PRN (18:25)
[2023-09-03] MEDS: FLUTICASONE PROP 0.05% 16 GM NASAL SPRAY NS SCH (18:30)
[2023-09-03] MEDS: FLUTICASONE PROP 0.05% 16 GM NASAL SPRAY NS ONE (18:46)
[2023-09-04] MEDS: BENZOCAINE/MENTHOL (CHLORASEPTIC ) LOZENGE MM PRN (03:58)
[2023-09-04 06:34] VITALS: TEMP 97.3
[2023-09-04 09:28] VITALS: BP 126/68; PULSE 75
== END 2023-09-04 09:45 | disposition home or self-care (01) | DRG 772 ==
LOC: YASAS 12:18 → Y3E 16:49 → Y5N 08-20 11:04
PROVIDERS: ADMIT Allergy & Immunology; ATTEND Psychiatry & Neurology Pain Medicine
PROC: HZ42ZZZ Group Counseling for Substance Abuse Treatment, Cognitive-Behavioral (ICD-10-PCS; principal; 2023-08-14)
DX: F14.20 Cocaine dependence, uncomplicated (principal); F12.20 Cannabis dependence, uncomplicated; F17.210 Nicotine dependence, cigarettes, uncomplicated; F19.24 Other psychoactive substance dependence with psychoactive substance-induced mood disorder; F25.9 Schizoaffective disorder, unspecified; F43.10 Post-traumatic stress disorder, unspecified; F32.A Depression, unspecified; E78.5 Hyperlipidemia, unspecified; I10 Essential (primary) hypertension; M25.562 Pain in left knee; Z96.652 Presence of left artificial knee joint; N40.0 Benign prostatic hyperplasia without lower urinary tract symptoms; Z99.89 Dependence on other enabling machines and devices; Z88.8 Allergy status to other drugs, medicaments and biological substances
CPT/HCPCS: 36415; 80053; 80305; 80307; 82962; 83036; 85027; 86780; J0475